=== PATIENT | female | born 1935 | race Caucasian/White ===

== ENCOUNTER 2016-11-05 02:41 | Inpatient (IN) | payer MEDICARE, OTHER ==
[~2016-11-05] VITALS: Ht 167.6 cm; Wt 73.8 kg
[2016-11-05] VITALS (7 sets, daily range): BP systolic 117–159; BP diastolic 54–72; PULSE 86–100; RESP 15–21; O2SAT 92–97
[~2016-11-05 02:41] MED LIST: HYDR-4003 PO
[2016-11-05] MEDS: Amiodarone 360 mg/200 mL D5W 360 MG, Filter, Taxol 14256-28 1 EACH in IV Premix 1 EACH IV SCH ×3 (03:30→18:37)
[2016-11-05] MEDS ORDERED: Alum-Mag Hydrox-Simeth 30 mL Suspension PO PRN (03:40)
[2016-11-05] MEDS ORDERED: Ondansetron 2 mg/mL 2 mL Inj IVPUSH PRN (03:40)
[2016-11-05] MEDS ORDERED: Polyethylene Glycol (PEG) 17 Gm Powder PO PRN (03:40)
[2016-11-05 04:06] LABS: BASOPHILS % (AUTO) 0.5 % (0-3); EOSINOPHILS % (AUTO) 0 % (0-5); MONOCYTES % (AUTO) 8.6 % (4-12); Mean Corpuscular Hemoglobin 30.3 pg (27.0-35.0); Mean Corpuscular Volume 92.1 fL (81-100); NEUTROPHILS % (AUTO) 77.7 % (40-74); Platelet Count 117 bil/L (150-400)
[2016-11-05] MEDS ORDERED: CART1TAB5 PO (04:20)
[2016-11-05] MEDS ORDERED: CALC600T12 PO (04:20)
[2016-11-05] MEDS ORDERED: ASCO-294 PO (04:20)
[2016-11-05] MEDS ORDERED: VIT1TABL83 PO (04:20)
[2016-11-05] MEDS ORDERED: Amiodarone 360 mg/200 mL D5W Premix IV ONE ×3 (04:37→18:32)
[2016-11-05] MEDS ORDERED: IV Premix 1 EACH IV ONE ×3 (04:37→18:32)
--- NOTE | 2016-11-05 04:42 | PCM.HPMED ---
Subjective Date of Service November 05, 2016 Primary Provider: Admitting Physician: Zuhair Majano MD Primary Care Physician: Nopcp Attending Physician: Zuhair Majano MD Admit Status: Direct Admit (From [facility]), Full Admit, [facility] Telemetry Chief Complaint: Tachyarrhythmia s/p Electrical cardioversion History of Present Illness: Vaishali Heart is a 80 yo woman with Breast cancer in remission but otherwise healthy who was transferred from [facility] after presenting there with respiratory symptoms and then subsequently had arrhythmia requiring electrical cardioversion and Amiodarone drip Patient reported felling well until 3 days ago when she developed shortness of breathe and associated with productive cough of yellow sputum. Other symptoms includes malaise. She reports a man was coughing around her when she went to the post office. She denies any aspiration or recent travels. She also developed pneumonia last April shortly after her husbands . She went to Urgent care clinic a day prior, she was told she likely had a viral infection and only recommended Mucinex and Claritin over the counter and no antibiotics prescribed. Last night before going to sleep she took both medications and immediately felt dizziness with near syncopal event as well as nausea (denies any vomiting). She felt warm all over her body and felt some palpitations. She also reported low grade fever 99. She called her daughter who recommended going to the hospital At [facility]: Chest X ray showed right lower lobe infiltrates EKG showed SVT at 146 then showing A fib with RVR with non specific ST-T wave changes Labs showed WBC 5.2 Hgb 13.1 Plt 116 Lactic acid 1.7 Troponin 0.08 BNP 287 INR 1.0 Initial assessment showed SVT with irregular rhythm with some runs of V tach. Carotid massage ineffective. Adenosine 6 and 12 mg also ineffective. Amiodarone given. Decision to cardiovert. Fentanyl and propofol given then synchronized cardioversion at 120, 159, 200, 200. Patient then converted to A fib with RVR. Dose of Cardizem and Amiodarone drip started. Patient also received Meropenem IV for pneumonia. Dr Sims was notified and recommend transferring to [facility] Review of Systems: Pertinent positives as noted in HPI. All other systems were reviewed and are negative Allergies Coded Allergies: levofloxacin (Verified Allergy, Mild, 11/05/16) pt cannot recall reaction, states "adverse". Pt states made pneumonia worse. Sulfa (Sulfonamide Antibiotics) (Verified Allergy, Unknown, 08/25/10) erythromycin base (Verified Allergy, Unknown, 08/25/10) guaifenesin (Verified Allergy, Unknown, Shortness of Breath, 11/05/16) pt states she felt spasms, and warmth/heat all over loratadine (Verified Allergy, Unknown, Shortness of Breath, 11/05/16) pt states she felt spasms, and warmth/heat all over risedronate sodium (Verified Adverse Reaction, Unknown, increased pain, 12/07/15) Home Medications No prescription medications PMH Breast cancer status post resection with chemotherapy and radiation therapy. 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 Surgical History right mastectomy in 1996 L eft hip fracture, status post repair by Dr. Ronquillo in Orthopedics Family History Father had Stroke 80s and from complications Mother had Kidney cancer No family history of any Cardiac disease Social History Hx Alcohol Use: No Hx Substance Use: No Hx Tobacco Use: No Smoking Status: Never Smoker Living Arrangement: Alone ( last April) Exam Vital Signs Vital Signs (First) Date Time Temp Pulse Resp B/P Pulse Ox O2 Delivery O2 Flow Rate FiO2 11/05/16 05:10 37.0 87 21 117/67 92 Room Air Exam General: Alert, Oriented X3, Cooperative, No acute Distress Eyes: PERRLA, Scleral Anicteric Mouth: Mouth Normal, Mucous Membranes Moist/[place] Neck: Supple, no Thyromegaly, trachea central. Chest & Lungs: decreased breathe sounds at base Cardiovascular: Normal S1, Normal S2, No Murmurs/Rubs/Gallops, Regular Rate/ Rhythm, (No JVD, no peripheral edema) Pulses: Radial (present and equal), Dorsalis Pedi (present and equal) Abdomen: Soft, Non-tender, Non-distended, Normoactive bowel tones. Musculoskeletal: Unremarkable. Normal range of motion, no swollen or erythematous joints Extremities: No edema, no cyanosis, no clubbing. Skin: No rashes. Warm and dry, no erythematous areas Neurological: Grossly neurologically intact, Normal Speech, Sensation Intact Lymphatic: Lymph nodes Cervical and Axillary not palpable. Lab and Diagnostics Labs Laboratory Tests Test 11/05/16 04:00 11/05/16 04:03 11/05/16 04:54 Hold Rivera Top Tube Received (Received) White Blood Count 4.4th/mm3 (3.8-10.1) Red Blood Count 4.06mil/mm3 (3.90-5.20) Hemoglobin 12.3g/dL (12.0-15.6) Hematocrit 37.4% (35.0-46.0) Mean Corpuscular Volume 92.1fL (81-100) Mean Corpuscular Hemoglobin 30.3pg (27.0-35.0) Mean Corpuscular Hemoglobin Concent 32.9% (32.0-37.0) Red Cell Distribution Width 14.4% (12.3-15.4) Platelet Count 117bil/L (150-400) Neutrophils (%) (Auto) 77.7% (40-74) Lymphocytes (%) (Auto) 13.2% (14-46) Monocytes (%) (Auto) 8.6% (4-12) Eosinophils (%) (Auto) 0% (0-5) Basophils (%) (Auto) 0.5% (0-3) Sodium Level 137mEq/L (134-144) Potassium Level 4.4mEq/L (3.5-5.2) Chloride Level 103mEq/L (97-108) Carbon Dioxide Level 17mmol/L (18-29) Blood Urea Nitrogen 14mg/dL (8-27) Creatinine 0.63mg/dL (0.57-1.00) Estimat Glomerular Filtration Rate 131mL/min (>59) Glucose Level 163mg/dL (60-99) Calcium Level 8.0mg/dL (8.5-10.1) Total Bilirubin 0.3mg/dL (0.0-1.2) Aspartate Amino Transf (AST/SGOT) 124U/L (0-50) Alanine Aminotransferase (ALT/SGPT) 92U/L (0-32) Alkaline Phosphatase 66U/L (25-165) Pro-B-Type Natriuretic Peptide 2205pg/mL (0-738) Total Protein 5.8g/dL (6.4-8.4) Albumin 3.4g/dL (3.4-5.0) Procalcitonin 0.12ng/mL (0.00-0.08) Thyroid Stimulating Hormone (TSH) 2.060uIU/mL (0.450-4.500) Hold Urine Received (Received) Result Diagram: 11/05/16 0403 Assessment & Plan Vaishali Heart is a 80 yo woman with Breast cancer in remission but otherwise healthy who was transferred from [facility] after presenting there with respiratory symptoms and then subsequently had arrhythmia requiring electrical cardioversion and Amiodarone drip 1 Acute Tachyarrhythmia. Present on admission Chronologically SVT, V tach then Atrial fibrillation with rapid ventricular response. s/p Electrical cardioversion. Etiology is unclear, possible Cardiac stress from pneumonia. Medication induced from Guaifenesin and Claritin or Takotsubo Cardiomyopathy. - continue monitoring on telemetry - continue Amiodarone drip - complete echo - trending troponin, checking TSH - await recommendations from Cardiology and possible EPS 2 Community acquired pneumonia. Present on admission Possible the patient initially acquired a viral respiratory infection then developed bacterial infection - Patient received Meropenem based on her allergy profile - follow Blood cultures from [facility] - Viral PCR requested - lactic acidosis - recommend consulting Dr Schrader for antibiotics choice 3. Elevated transaminase. Present on admission Etiology unclear but could be shock liver related to tachyarrhythmia. Ration AST :AST 2:1 - Patient denies any Alcoholism or medications with hepatotoxicity 4 History of Breast Cancer. in remission - Acetaminophen as needed for mild pain/fever/headache - Bowel regimen as needed - Antiemetic as needed Patient admitted under inpatient status with expected length of stay > 2 midnights for severity of present symptoms, complexities of treatment plan and risk for adverse event . Resuscitation Status: DNR/DNI:Do Not Resuscitate/Intubate Zuhair Majano MD November 05, 2016 04:42
--- NOTE | 2016-11-05 05:45 | PCM.ADCARE ---
Advance Care Planning Note Purpose of Encounter: Active Diagnoses: Atrial fibrillation with rapid ventricular response Community acquired pneumonia These active diagnoses are sufficient risk that focused discussion on advance car planning is indicated in order to allow the patient to thoughtfully consider personal goals of care and if situations arise that prevent the ability to personally give input to insure appropriate representation of their personal desires through documentation or informed surrogate decision makers Parties in Attendance: Patient, Daughter (Modesta Quinn) and me Decisional Capacity: Good Goals of Care Determinations: I reviewed new diagnosis or Atrial fibrillation and pneumonia and her desires for ongoing aggressive care, including potential intubation and mechanical ventilation as well as CPR. Also discussed who would speak on her behalf should she be unable to do so, she states her daughter Modesta Quinn will be her proxy and Power of erisa attorney. Patient has already decided of DNR/DNI and reported filling a Polst form with Dr Byrd already CODE STATUS: DNI/DNR Time Spent Adv.Care Planning: Total time spent [id number] in education and discussion directly related to Advance Care Plannin minutes Zuhair Majano MD November 05, 2016 05:45
[2016-11-05 16:32] LABS: APPEARANCE,URINE CLEAR (CLEAR,HAZY); COLOR,URINE STRAW (YELLOW); OCCULT BLOOD,URINE NEGATIVE (NEGATIVE); UROBILINOGEN,URINE NORMAL (NORMAL)
--- NOTE | 2016-11-05 20:49 | CONS ---
[address] [address] CONSULTATION REPORT PATIENT: TRACI CH : 1935 MR#: [id number] ADMIT: 11/05/2016 JOB ID: [id number] CARDIOLOGY CONSULTATION: DATE OF SERVICE: 11/05/2016 CHIEF COMPLAINT: Malaise for three days. HISTORY OF PRESENT ILLNESS: This is a 80-year-old woman transferred from [facility] for near syncopal episode which upon review of the available strips and EKGs shows atrial flutter with 1:1 conduction as well as brief episodes of ventricular tachycardia. The patient says that her story began about three days ago when she was feeling tired and short of breath. She saw her primary care provider and was diagnosed with basically seasonal allergies. She was told to get some [id number] remedies for this problem, but she took the [id number]-yzcgaia remedy and felt worse, so she reported to [facility] Emergency Department. She was diagnosed with pneumonia. Unfortunately I do not have the EKGs available for review. She also had a low grade fever. She suffered episode of near syncope. There are two strips and one 12 lead EKG from [facility] available for review. There is a 12-lead EKG from 1 a.m. that shows A-flutter with a cycle length of 240 msec in the first half of this EKG and then she converted spontaneously to normal sinus rhythm. Then there is a strip obtained at 1:23 a.m. which shows atrial tachycardia followed by basically what appears to be ventricular tachycardia with a cycle length of 240 msec lasting 9 beats. Then there is another strip at 1:25 a.m. on November 05 which shows atrial tachycardia followed by 20 beat run of ventricular tachycardia. I say 20 beat run because that is how many beats are documented on the strip, but actually the termination of the run of ventricular tachycardia has not been documented. The patient apparently was shocked four times at [facility] and transferred to [facility] for further management. PAST MEDICAL HISTORY: History of breast cancer treated with right-sided mastectomy and bilateral reconstruction as well as radiation therapy in 1996. Currently in remission. PAST SURGICAL HISTORY: 1. History of ground level fall and associated hip fracture. Status post tubal ORIF on the left side. 2. Bilateral cataract surgery. 3. History of tonsillectomy. 4. Breast reconstruction as outlined above. SOCIAL HISTORY: The patient is a . The patient is a lifetime nonsmoker. FAMILY HISTORY: Brother with cancer of the colon. Father with stroke. Mother with kidney cancer and diabetes. REVIEW OF SYSTEMS: Patient reports malaise, dizziness, near-syncope, low-grade fevers, cough. Otherwise 10 point review of systems is negative. ALLERGIES: 1. LEVOFLOXACIN which causes trouble breathing. 2. SULFA DRUGS which cause a rash. 3. RISEDRONATE which causes neck pain. 4. ERYTHROMYCIN which causes a rash. HOME MEDICATIONS: Multiple supplements and herbs including vitamin D, calcium, magnesium, and vitamin C. PHYSICAL EXAMINATION: At this moment in time, temperature 36.6, blood pressure 117/67, up to 159/72, pulse 86 up to 95 beats per minute. She has been in normal sinus rhythm the whole time she has been on tele. She is satting 92% to 97% on 1 L nasal cannula. Very pleasant woman in no apparent distress. Eyes: No scleral icterus. Neck is supple. No lymphadenopathy. No carotid bruits. Skin: No rashes or lesions. Lungs with diminished breath sounds on the right. Heart: Normal S1, S2. No murmurs, rubs, or gallops. Abdomen is soft, positive bowel sounds. No hepatosplenomegaly. Extremities: Warm and well perfused. No clubbing, cyanosis, or edema. LABORATORY DATA: Reviewed. TSH is normal. Troponin T is negative x2. Creatinine 0.6. AST 124, ALT 92, total bilirubin 0.3. Labs from [facility] were also reviewed. They show the D-dimer was high at 652. Over there platelets were low at 116, hematocrit was 40%, white count 5.2 with normal differential. ASSESSMENT AND PLAN: In summary, this is a 80-year-old woman. She is diagnosed here with influenza AH3. She is on contact and airborne precautions. She has been placed on oseltamivir. She also has arrhythmia; namely paroxysmal atrial flutter noted in the emergency department at [facility]. We have not seen any here. It seems to have responded favorably to amiodarone infusion. Technically, amiodarone is a risky medication especially for person with abnormal liver function testing. I think we could try to just put her on a beta sharlene and see how she does tomorrow. Roc will just try her on amiodarone tablet and see how she does with that. So because she had runs of symptomatic and possibly sustained ventricular tachycardia, I put her on amiodarone 400 mg 3 times a day. In terms of paroxysmal atrial flutter, technically she is at risk for stroke and qualifies for anticoagulation medication. She tells me though that she coughed up some possibly bloody sputum; it was gold color, so for that reason, I am not recommending anticoagulation until we obtain imaging of her lungs. I hear decreased breath sounds on the right but she does not have any imaging available for review; none as mentioned on the notes from [facility] and none is available in the . So if the lung imaging is reassuring then I recommend heparin drip per ACS protocol. If lung imaging demonstrates significant mass-effect that could be accounting for hemoptysis then I recommend withholding anticoagulation until further notice. For now I will just put her on aspirin 325 mg daily. While her troponins are negative, the runs of ventricular tachycardia are quite concerning. I think she is at risk for stress cardiomyopathy with her influenza and I have seen that before so echocardiogram has been ordered and is pending and will have a low threshold to pursue angiogram given runs of sustained ventricular tachycardia and Electrophysiology consultation. Thank you very much for the opportunity to participate in her care.
--- NOTE | 2016-11-05 21:31 | DRSVH ---
PROCEDURE: X-RAY CHEST, TWO VIEWS ([id number]) INDICATIONS: pneumonia TECHNIQUE: 2 views of the chest were acquired. COMPARISON: [facility], CR, XR CHEST 2VW, 05/16/2016, 8:44. FINDINGS: Surgical changes and devices: None. Lungs and pleura: No pneumothorax. Patchy pulmonary opacities are present in the right lung base, in creased from the prior chest film dated 05/16/16. A diffuse reticular pattern is present throughout t he lungs suggesting underlying fibrosis. There is prominence of the interstitium and Yessi B. lines at the bilateral lung bases. Mediastinum: Mediastinal contours are normal. Heart size is enlarged, as before. Bones and chest wall: No suspicious bony abnormalities. Soft tissues appear unremarkable. IMPRESSION: 1. Right basilar radiopacities which are new when compared with the prior study suspicious for aspira tion/infection. 2. Findings suspicious for pulmonary edema superimposed on pulmonary fibrosis. Dictated by: Mercedez Paulino M.D. on 11/05/2016 at 21:28 Approved by: Mercedez Paulino M.D. on 11/05/2016 at 21:30
[2016-11-06] VITALS (12 sets, daily range): BP systolic 113–152; BP diastolic 57–82; PULSE 79–100; RESP 16–18; O2SAT 90–97
[2016-11-06 02:58] LABS: BASOPHILS % (AUTO) 0.2 % (0-3); EOSINOPHILS % (AUTO) 0 % (0-5); MONOCYTES % (AUTO) 8.8 % (4-12); Mean Corpuscular Volume 92.5 fL (81-100); NEUTROPHILS % (AUTO) 64.9 % (40-74); Platelet Count 124 bil/L (150-400)
--- NOTE | 2016-11-06 14:55 | DRSVH ---
[facility] [address] [place] [address] Echocardiogram Report Name: TRACI CH JStudy Date: 11/06/2016 Height: 66 in Hospital Exam Location: [facility] Weight: 173 lb Gender: Female BSA: 1.9 m2 : 1935 Age: 80 yrs BP: 135/81 mmHg Reason For Study: Atrial fibrillation Ordering Physician: Performed By: Mary Chen [facility] Interpretation Summary Normal sinus rhythm, Normal LV size and mild concentric LVH. There is normal wall motion and LV systolic function. EF is 60-65%. Stage II diastolic dysfunction. There is moderate LA enlargement and mild RA enlargement. There is mild MAC with trace associated MR. Aortic valve is mildly calcified with mild aortic regurgitation and no evidence of stenosis. No prior study available for comparison. Procedure: A two-dimensional transthoracic echocardiogram with color flow and Doppler was performed. The study quality was technically adequate. There is no prior echocardiogram noted for this patient. The patient was in normal sinus rhythm during the exam. Left Ventricle: The left ventricle is normal in size. There is mild concentric left ventricular hypertrophy. A false chord is noted (normal variant). The ejection fraction is estimated to be 60-65%. Assessment of diastolic parameters suggests a pseudonormalization pattern, consistent with elevated filling pressures. The E/E' ratio is abnormal. Right Ventricle: The right ventricle is mildly dilated. The right ventricular systolic function is normal. Atria: The left atrium is moderately dilated. The right atrium is mildly dilated. There is no Doppler evidence for an interatrial shunt. Mitral Valve: There is mild mitral annular calcification. There is trace mitral regurgitation. Aortic Valve: The aortic valve is trileaflet. The aortic valve opens well. The aortic valve is slightly calcified. There is trace aortic regurgitation. Tricuspid Valve: The tricuspid valve leaflets are thin and pliable. There is mild tricuspid regurgitation. The right ventricular systolic pressure is estimated at 38 mmHg assuming a right atrial pressure of 15 mm Hg. Pulmonic Valve: The pulmonic valve is not well visualized. Great Vessels: The aortic root is normal size. The ascending aorta is mildly enlarged. The aortic arch could not be visualized. The IVC is dilated (diameter is greater than 2.1 cm) and it collapses less than 50% with a sniff. This suggests a high right atrial pressure of 15 mm Hg. Pericardium/ Pleura There is an anterior echo-free space consistent with a fat pad. There is no pericardial effusion. MMode/2D Measurements & Calculations LVIDd: 4.2 cm RA long axis LVOT diam LVIDs: 2.9 cm LA A2 area: 25.7 cm FS: 29.9 % LA A4 area: 26.7 cm RA area Ao root diam EPSS: 0.36 cm LA length (vol): 7.0 cm IVSd: 1.1 cm LA vol: 82.8 ml : 22.3 cm Aortic Jxn LVPWd: 1.1 cm LA vol index RA vol: 69.4 ml RA asc Aorta : 36.9 mm2 Diam: 3.4 cm IVC diam: 2.6 cm LV cox. diameter/BSA LV sys. diameter/BSA RVD1 (basal) TAPSE: 2.5 cm (cm/m^2): 2.2 (cm/m^2): 1.6 Doppler Measurements & Calculations Ao V2 max MV E max александр MV E/A: 1.3 TR max александр : 166.9 cm/sec : 114.5 cm/sec Med Peak E' Александр : 242.1 cm/sec Ao max P.1 mmHg MV A max александр TR max PG Ao mean P.1 mmHg : 89.8 cm/sec E/E' med: 17.3 : 23.4 mmHg LVOT Max Александр MV P1/2t: 59.9 msec Lat Peak E' Александр : 124.3 cm/sec E/E' lat: 12.1 RAHAT(I,D): 2.0 cm E/e' average sev ratio: 0.67 AI P1/2t: 473.3 msec AI dec slope : 261.2 cm/s2c MV dec time: 0.20 sec MV P1/2t max александр Ao V2 mean LV V1 max PG : 116.6 cm/sec MVA(P1/2t): 3.7 cm2 Ao V2 VTI: 33.9 cmLV V1 VTI RAHAT(V,D): 2.2 cm2 : 22.9 cm RAHAT indexed to BSA (cm^2/m^2): 1.1 Reading Physician:02:54 PM
[2016-11-06] MEDS: Piperacillin-Tazo 3.375 Gm Inj 3.375 GM in Dextrose 5% Minibag Plus 50 ML IV SCH ×2 (18:00→23:41)
--- NOTE | 2016-11-06 19:34 | PROG NOTE ---
[address] [address] PROGRESS NOTE PATIENT: TRACI CH : 1935 MR#: [id number] ADMIT: 11/05/2016 JOB ID: [id number] DATE: 11/06/2016 SUBJECTIVE: Patient had no recurrence of dysrhythmia overnight. She was successfully transitioned from IV amiodarone to p.o. amiodarone. She is accompanied today by her daughter and granddaughter, Elizabet, and they have many questions about mom's prognosis. PHYSICAL EXAMINATION: Vital signs reviewed. Well-nourished, no apparent distress. Eyes: No scleral icterus. Neck supple. No carotid bruits. Heart: Normal S1, S2. No murmurs. Lungs: Clear anteriorly. Abdomen: Soft, positive bowel sounds. No hepatosplenomegaly. Telemetry shows that heart rate fluctuates between 80 up to 106 beats per minute. She had brief episodes of asymptomatic atrial tachycardia but certainly no recurrence of atrial flutter ASSESSMENT AND PLAN: In summary, this is a 80-year-old woman admitted with influenza virus and associated shortness of breath. Unfortunately she also developed evidence of sustained ventricular tachycardia that was of highly symptomatic and atrial flutter with rapid ventricular response and 1:1 conduction requiring four cardioversions at [facility]. She has responded favorably to amiodarone. However, in the buttermilk drier operator, probably not the greatest medication for her, given transaminitis. Today, we had a family meeting with patient, daughter, and granddaughter, Elizabet, present. Unfortunately it sounds like mom's functional status has declined. She is having memory problems. She sometimes leaves the stove on. There is thinking that she needs to be having 24/7 care and live-in aide, or maybe even go to assisted living facility. They are not sure about the directions of care. They are not sure whether she would want an ICD or whether she would want to have EP study or cardiac catheterization, which is what it would take to understand the etiology of her ventricular tachycardia. Personally, I am not sure 100% sure whether wide-complex tachycardia is in fact ventricular tachycardia or whether it represents atrial flutter with aberrant conduction. We also are not sure about the duration of VT. It certainly appears greater than 10 seconds, but I cannot be sure because termination is not documented. Echocardiogram shows preserved LV systolic function, and at least for the time being, we have stabilized her tachyarrhythmia. The plan for this patient is to have another family meeting tomorrow after she has had time to think about the direction of care. If she chooses to proceed with comprehensive care, I would recommend cardiac catheterization to rule out hemodynamically significant atherosclerotic heart disease that is the cause of her sustained VT. After that, if it is negative, that would be great and I hope it would be since her LV systolic function is normal. Then I would recommend a comprehensive EP study to understand why she had flutter with 1:1 conduction. It is possible that she has accessory pathway, possibly antegrade only so she does not have evidence of preexcitation on the resting EKG. If indeed she has accessory pathway that facilitated 1:1 conduction and was unmasked in the setting of high adrenergic stress event then she would benefit from ablation, but alternatively, she could just have had flutter with rapid ventricular response. That could be treated with ablation. I think she would benefit from seeing our network security officer, Dr. Vázquez, to discuss this problem further. Given paroxysmal A-flutter technically she would qualify for oral anticoagulation if her CBC is stable and I recommend trying low molecular weight heparin 1 mg/kg subcu b.i.d. for stroke prevention. I recommend repeating her liver function tests. If transaminases remain elevated and amiodarone is not a good medication for her, will have to think of an alternative antiarrhythmic. Thank you very much for the opportunity to evaluate her. LAURITA
--- NOTE | 2016-11-06 22:18 | PCM.PNMED ---
Subjective Date of Service November 06, 2016 Subjective Patient is feeling poorly today and is extremely fatigued with malaise and somnolence. She also complains of fever today. Exam Vital Signs Vital Sign - Last Date Time Temp Pulse Resp B/P Pulse Ox O2 Delivery O2 Flow Rate FiO2 11/06/16 20:00 95 11/06/16 16:04 36.7 18 126/68 96 Nasal Cannula 2.00 Intake and Output 11/05/16 11/05/16 11/06/16 Cumulative From/Thru 15:00 23:00 07:00 11/05/16 04:24 - 11/06/16 06:05 Intake Total 1229 ml 424 ml 2013 ml Output Total 1200 ml 1050 ml 2850 ml Balance 29 ml -626 ml -837 ml Intake Oral 818 ml 390 ml 1568 ml IV Total 411 ml 34 ml 445 ml Output Urine Total 1200 ml 1050 ml 2850 ml Exam General: Patient appears fatigued and ill. Otherwise she is in no apparent distress and appears comfortable. HEENT: Head is atraumatic and normocephalic. Eyes: Pupils are equally round and reactive to light and accommodation. Extraocular muscles are intact. Sclera are white, anicteric. Subconjunctival mucosa is pink. Ears and nose are unremarkable. Oropharynx: There is no mucosal lesions, there is no thrush, there is no pharyngitis. Neck: Is supple, there are no nodes, or masses or tenderness. Chest: There is a few basilar crackles at the right base Heart: Rate is controlled, rhythm is irregular. There is no new murmur, rub or gallop. Abdomen: Good bowel sounds are present. Abdomen is soft, nontender, no organomegaly or masses were appreciated. Extremities: Are symmetrical and well perfused. There is no edema, there is no cellulitis, no rash. Neurologic: There are no focal neurological deficits. Cranial nerves II through XII are intact. There are no sensory or motor deficits. Psychiatric: Patients mood is calm and she shows no sign of agitation. Genital: Deferred Rectal: Deferred Lab and Diagnostics Result Diagram: 11/06/16 0236 11/06/16 0236 Microbiology INFLUENZA A PCR Final 11/05/16-1115 Organism 1 INFLUENZA A H3 INFLUENZA A PCR DETECTED TIME CALLED: 1113 DATE CALLED: 11/05/16 FLOOR/DOCTOR: [facility] CALLED BY: ROD 12-lead ECG PROCEDURE: X-RAY CHEST, TWO VIEWS ([id number]) INDICATIONS: pneumonia TECHNIQUE: 2 views of the chest were acquired. COMPARISON: [facility], CR, XR CHEST 2VW, 05/16/2016, 8:44. FINDINGS: Surgical changes and devices: None. Lungs and pleura: No pneumothorax. Patchy pulmonary opacities are present in the right lung base, increased from the prior chest film dated 05/16/16. A diffuse reticular pattern is present throughout the lungs suggesting underlying fibrosis. There is prominence of the interstitium and Yessi B. lines at the bilateral lung bases. Mediastinum: Mediastinal contours are normal. Heart size is enlarged, as before. Bones and chest wall: No suspicious bony abnormalities. Soft tissues appear unremarkable. IMPRESSION: 1. Right basilar radiopacities which are new when compared with the prior study suspicious for aspiration/infection. 2. Findings suspicious for pulmonary edema superimposed on pulmonary fibrosis. Dictated by: Mercedez Paulino M.D. on 11/05/2016 at 21:28 Approved by: Mercedez Paulino M.D. on 11/05/2016 at 21:30 Cardiac Echo Impressions Echocardiogram Report Name: VAISHALI CH JStudy Date: 11/06/2016 Height: 66 in Hospital Exam Location: [facility] Weight: 173 lb Gender: Female BSA: 1.9 m2 : 1935 Age: 80 yrs BP: 135/81 mmHg Reason For Study: Atrial fibrillation Ordering Physician: Performed By: Mary [facility] Interpretation Summary Normal sinus rhythm, Normal LV size and mild concentric LVH. There is normal wall motion and LV systolic function. EF is 60-65%. Stage II diastolic dysfunction. There is moderate LA enlargement and mild RA enlargement. There is mild MAC with trace associated MR. Aortic valve is mildly calcified with mild aortic regurgitation and no evidence of stenosis. No prior study available for comparison. Assessment & Plan Vaishali Ch is a 80 yo woman with a history of Breast cancer in remission but otherwise healthy who was transferred from [facility] after presenting there with respiratory symptoms and then subsequently had arrhythmia requiring electrical cardioversion and Amiodarone drip 1 Acute Tachyarrhythmia. Present on admission Chronologically SVT, V tach then Atrial fibrillation with rapid ventricular response. s/p Electrical cardioversion. Etiology is unclear, possible Cardiac stress from pneumonia. Medication induced from Guaifenesin and Claritin or Takotsubo Cardiomyopathy. - continue monitoring on telemetry - continue Amiodarone drip - complete echo - trending troponin, checking TSH - Tie Hacker Dr. Child has seen the patient and appreciate her recommendations recommendations from a Cardiology standpoint. We will follow her recommendations. 2 Community acquired pneumonia. Present on admission. With influenza A H3. Patient has persistent fever on Tamiflu. Possible the patient initially acquired a viral respiratory infection then developed a secondary bacterial infection with chest x-ray showing evidence for right lower lobe infiltrate - Patient received Meropenem initially due to her allergy profile. We will de- escalate slightly to Zosyn 3.375 g IV every 8 hours. - We will follow Blood cultures from [facility] which are pending. - Viral PCR panel positive for influenza A H3. - Patient had lactic acidosis - We will consider infectious disease consultation. 3. Elevated transaminase. Present on admission Etiology unclear but could be shock liver related to tachyarrhythmia. Ration AST :AST 2:1 - Patient denies any Alcoholism or medications with hepatotoxicity - We will repeat liver function tests in a.m. 4 History of Breast Cancer. in remission - Continue Acetaminophen as needed for mild pain/fever/headache - Continue Bowel regimen as needed - Continue Antiemetic as needed Disposition: Patient is likely to be here for another 4872 hours for further evaluation and treatment of the above condition. . Pain Evaluation: Adequate Pain Control GI Prophylaxis: Proton Pump Inhibitor VTE Prophylaxis: Sub-Q Enoxaparin Resuscitation Status: DNR/DNI:Do Not Resuscitate/Intubate Tino Mabry MD November 06, 2016 22:18
[2016-11-07] VITALS (9 sets, daily range): BP systolic 112–130; BP diastolic 60–75; PULSE 71–85; RESP 16–20; O2SAT 94–98
[2016-11-07 03:18] LABS: BASOPHILS % (AUTO) 0.5 % (0-3); EOSINOPHILS % (AUTO) 0.5 % (0-5); MONOCYTES % (AUTO) 12.4 % (4-12); Mean Corpuscular Hemoglobin 29.5 pg (27.0-35.0); Mean Corpuscular Volume 92.9 fL (81-100); Platelet Count 133 bil/L (150-400)
[2016-11-07 04:04] LABS: Magnesium 1.8 mg/dL (1.6-2.6); Phosphorus 3.9 mg/dL (2.5-4.9)
[2016-11-07] MEDS: Piperacillin-Tazo 3.375 Gm Inj 3.375 GM in Dextrose 5% Minibag Plus 50 ML IV SCH ×2 (09:08→16:13)
[2016-11-07] MEDS: Pantoprazole 40 mg ER24 Tablet PO SCH (09:08)
--- NOTE | 2016-11-07 16:32 | PCM.PNMED ---
Subjective Date of Service November 07, 2016 Subjective Vaishali Heart is a 80 yo woman with a history of Breast cancer in remission but otherwise healthy who was transferred from [facility] after presenting there with respiratory symptoms and then subsequently had arrhythmia requiring electrical cardioversion and Amiodarone drip. Hospital day #3. Overnight: The patient had a few runs of SVT that returned to atrial flutter with heart rate in the 80s and 90s. The patient was asymptomatic at that time. Today: The patient states that she feels quite tired but denies any fevers, chills, nausea, vomiting. She does state that she has been constipated. She states that she has decided to hear out the options that Dr. Vázquez can offer for atrial flutter however she would not like any invasive procedures such as cardiac catheterization. She would however like to maintain her independence, specifically her driving. The remainder of review of systems is negative except as noted above. Exam Vital Signs Vital Sign - Last Date Time Temp Pulse Resp B/P Pulse Ox O2 Delivery O2 Flow Rate FiO2 11/07/16 12:00 36.9 81 16 118/65 97 Nasal Cannula 2.50 Intake and Output 11/06/16 11/06/16 11/07/16 Cumulative From/Thru 15:00 23:00 07:00 11/05/16 04:24 - 11/07/16 04:58 Intake Total 440 ml 380 ml 2833 ml Output Total 1200 ml 800 ml 4850 ml Balance -760 ml -420 ml -2017 ml Intake Oral 440 ml 250 ml 2258 ml IV Total 130 ml 575 ml Output Urine Total 1200 ml 800 ml 4850 ml # Voids 1 1 # Bowel Movements 0 0 Exam General: Patient appears fatigued and ill. Otherwise she is in no apparent distress and appears comfortable. HEENT: Head is atraumatic and normocephalic. Eyes: Pupils are equally round and reactive to light and accommodation. Extraocular muscles are intact. Sclera are white, anicteric. Subconjunctival mucosa is pink. Ears and nose are unremarkable. Oropharynx: There is no mucosal lesions, there is no thrush, there is no pharyngitis. Neck: Is supple, there are no nodes, or masses or tenderness. Chest: There is still a few basilar crackles at the right base Heart: Rate is controlled, rhythm is irregular. There is no new murmur, rub or gallop. Abdomen: Good bowel sounds are present. Abdomen is soft, nontender, no organomegaly or masses were appreciated. Extremities: Are symmetrical and well perfused. There is no edema, there is no cellulitis, no rash. Neurologic: There are no focal neurological deficits. Cranial nerves II through XII are intact. There are no sensory or motor deficits. Psychiatric: Patients mood is calm and she shows no sign of agitation. Genital: No Bahena. Rectal: Deferred IVs and Medications Medications Reviewed: Medications were reviewed in detail Lab and Diagnostics Result Diagram: 11/07/1623411/07/16234 Microbiology Respiratory PCR positive for influenza A H3 X-Rays, CTs and MRIs X-RAY CHEST, TWO VIEWS IMPRESSION: 1. Right basilar radiopacities which are new when compared with the prior study suspicious for aspiration/infection. 2. Findings suspicious for pulmonary edema superimposed on pulmonary fibrosis. Dictated by: Mercedez Paulino M.D. on 11/05/2016 at 21:28 Cardiac Echo Impressions Interpretation Summary Normal sinus rhythm, Normal LV size and mild concentric LVH. There is normal wall motion and LV systolic function. EF is 60-65%. Stage II diastolic dysfunction. There is moderate LA enlargement and mild RA enlargement. There is mild MAC with trace associated MR. Aortic valve is mildly calcified with mild aortic regurgitation and no evidence of stenosis. No prior study available for comparison. Assessment & Plan Vaishali Heart is a 80 yo woman with a history of Breast cancer in remission but otherwise healthy who was transferred from [facility] after presenting there with respiratory symptoms and then subsequently had arrhythmia requiring electrical cardioversion and Amiodarone drip. Hospital day #3 1. Acute Tachyarrhythmia. Present on admission Chronologically SVT, V tach then Atrial fibrillation with rapid ventricular response. s/p Electrical cardioversion. Etiology is unclear, possible causes include. a )Cardiac stress from pneumonia. b )Medication induced from Guaifenesin and Claritin or c )Takotsubo Cardiomyopathy. - We will continue monitoring on telemetry - We will continue Amiodarone drip - Echo consistent with findings as expected for the patient's age and mild diastolic dysfunction mild MR and mild . - TSH unremarkable - Wool Supplier Dr. Child has seen the patient and appreciate her recommendations recommendations from a Cardiology standpoint. We will follow her recommendations. - Patient is agreeable to discuss her options with Dr. Vázquez. 2. Community acquired pneumonia. Present on admission. With influenza A H3. Patient had a persistent fever on Tamiflu. It is possible that the patient initially acquired a viral respiratory infection then developed a secondary bacterial infection with chest x-ray showing evidence for right lower lobe infiltrate - Patient received Meropenem initially due to her allergy profile. We have de- escalated the antibiotics slightly to Zosyn 3.375 g IV every 8 hours. - We will follow Blood cultures from [facility] which are pending. - Viral PCR panel positive for influenza A H3. - Patient had lactic acidosis - We will consider infectious disease consultation. 3. Elevated transaminase. Present on admission Etiology unclear but could be shock liver related to tachyarrhythmia. Ration AST :AST 2:1 - Patient denies any Alcoholism - She does admit to taking several herbal supplements from a fiber optic assembler. She will have her daughter bring in a list of them for evaluation. - We will repeat liver function tests in a.m. 4 History of Breast Cancer. in remission - Continue Acetaminophen as needed for mild pain/fever/headache - Continue Bowel regimen as needed - Continue Antiemetic as needed Disposition: Patient is likely to be here for another 48-72 hours for further evaluation and treatment of the above condition. Anticipate discharge home. Pain Evaluation: Adequate Pain Control GI Prophylaxis: Proton Pump Inhibitor VTE Prophylaxis: Sub-Q Enoxaparin Resuscitation Status: DNR/DNI:Do Not Resuscitate/Intubate Attending Statement Patient seen and examined with Dr. Rivera. Chart reviewed and agree with the above progress note. More Rivera DO November 07, 2016 16:07 Tino Mabry MD November 07, 2016 20:22
[2016-11-08] VITALS (8 sets, daily range): BP systolic 113–135; BP diastolic 63–81; PULSE 74–84; RESP 16–20; O2SAT 94–96
[2016-11-08] MEDS: Piperacillin-Tazo 3.375 Gm Inj 3.375 GM in Dextrose 5% Minibag Plus 50 ML IV SCH ×3 (00:27→17:01)
[2016-11-08 03:10] LABS: BASOPHILS % (AUTO) 1.1 % (0-3); EOSINOPHILS % (AUTO) 1.7 % (0-5); MONOCYTES % (AUTO) 10.7 % (4-12); Mean Corpuscular Hemoglobin 29.6 pg (27.0-35.0); Mean Corpuscular Volume 92.7 fL (81-100); NEUTROPHILS % (AUTO) 53.5 % (40-74); Platelet Count 146 bil/L (150-400)
[2016-11-08 03:54] LABS: Magnesium 1.9 mg/dL (1.6-2.6); Phosphorus 3.7 mg/dL (2.5-4.9)
[2016-11-08] MEDS: Pantoprazole 40 mg ER24 Tablet PO SCH (08:51)
--- NOTE | 2016-11-08 16:08 | PCM.PNMED ---
Subjective Date of Service November 08, 2016 Subjective Vaishali Heart is a 80 yo woman with a history of Breast cancer in remission but otherwise healthy who was transferred from [facility] after presenting there with respiratory symptoms and then subsequently had arrhythmia requiring electrical cardioversion and Amiodarone drip. Currently under treatment for influenza, pneumonia, and tachyarrhythmia. Hospital day #4. Overnight: No acute events. Patient has been in normal sinus rhythm overnight. Today: States that she is feeling much better today and is longer as fatigued as she was yesterday. She denies any myalgias or arthralgias. She denies any fevers or chills. She spoke with Dr. Vázquez's physician special event assistant, Neymar Avilez , but was uncertain of the conclusion of the conversation. It was her understanding that the PA would be speaking to Dr. Vázquez and getting back to her. The remainder of review of systems is negative except as noted above. Exam Vital Signs Vital Sign - Last Date Time Temp Pulse Resp B/P Pulse Ox O2 Delivery O2 Flow Rate FiO2 11/08/16 13:55 36.9 84 18 113/63 94 Room Air 11/07/16 23:00 2.00 Intake and Output 11/07/16 11/07/16 11/08/16 Cumulative From/Thru 15:00 23:00 07:00 11/05/16 04:24 - 11/08/16 05:46 Intake Total 780 ml 578 ml 4191 ml Output Total 600 ml 1500 ml 6950 ml Balance 180 ml -922 ml -2759 ml Intake Oral 780 ml 300 ml 3338 ml IV Total 278 ml 853 ml Output Urine Total 600 ml 1500 ml 6950 ml # Voids 4 5 # Bowel Movements 0 1 1 Exam General: Patient appears better than she did yesterday. She appears to have more energy. She is in no apparent distress and appears comfortable. HEENT: Head is atraumatic and normocephalic. Eyes: Pupils are equally round and reactive to light and accommodation. Extraocular muscles are intact. Sclera are white, anicteric. Subconjunctival mucosa is pink. Ears and nose are unremarkable. Oropharynx: There is no mucosal lesions, there is no thrush, there is no pharyngitis. Neck: Is supple, there are no nodes, or masses or tenderness. Chest: There are still a few basilar crackles at the right base. Heart: Rate is controlled, rhythm is irregular. There is no new murmur, rub or gallop. Abdomen: Good bowel sounds are present. Abdomen is soft, nontender, no organomegaly or masses were appreciated. Extremities: Are symmetrical and well perfused. There is no edema, there is no cellulitis, no rash. Neurologic: There are no focal neurological deficits. Cranial nerves II through XII are intact. There are no sensory or motor deficits. Psychiatric: Patients mood is calm and she shows no sign of agitation. Genital: No Bahena. IVs and Medications Medications Reviewed: Medications were reviewed in detail Lab and Diagnostics Result Diagram: 11/08/1624911/08/16249 Microbiology Respiratory PCR positive for influenza A H3 X-Rays, CTs and MRIs X-RAY CHEST, TWO VIEWS IMPRESSION: 1. Right basilar radiopacities which are new when compared with the prior study suspicious for aspiration/infection. 2. Findings suspicious for pulmonary edema superimposed on pulmonary fibrosis. Dictated by: Mercedez Paulino M.D. on 11/05/2016 at 21:28 Cardiac Echo Impressions Interpretation Summary Normal sinus rhythm, Normal LV size and mild concentric LVH. There is normal wall motion and LV systolic function. EF is 60-65%. Stage II diastolic dysfunction. There is moderate LA enlargement and mild RA enlargement. There is mild MAC with trace associated MR. Aortic valve is mildly calcified with mild aortic regurgitation and no evidence of stenosis. No prior study available for comparison. Assessment & Plan Vaishali Heart is a 80 yo woman with a history of Breast cancer in remission but otherwise healthy who was transferred from [facility] after presenting there with respiratory symptoms and then subsequently had arrhythmia requiring electrical cardioversion and Amiodarone drip. Currently under treatment for influenza, pneumonia, and tachyarrhythmia. Hospital day #4. 1. Acute Tachyarrhythmia. Present on admission. Appears improved. Chronologically SVT, V tach then Atrial fibrillation with rapid ventricular response. s/p Electrical cardioversion. Etiology is unclear, possible causes include. a )Cardiac stress from pneumonia. b )Medication induced from Guaifenesin and Claritin or c )Takotsubo Cardiomyopathy. - We will continue monitoring on telemetry - We will follow the recommendations of cardiology and decrease her amiodarone from 400 mg by mouth 3 times a day to 400 mg by mouth twice a day. - Echo consistent with findings as expected for the patient's age with mild diastolic dysfunction, mild MR and mild . - TSH unremarkable - Break Out Worker Dr. Child has seen the patient and appreciate her recommendations recommendations from a Cardiology standpoint. We will follow her recommendations. - Patient is agreeable to discuss her options with Dr. Vázquez. We will follow Dr. Vázquez's recommendations. 2. Community acquired pneumonia. Present on admission. With influenza A H3. Patient had a persistent fever on Tamiflu. Fever improved today. It is possible that the patient initially acquired a viral respiratory infection then developed a secondary bacterial infection with chest x-ray showing evidence for right lower lobe infiltrate - Patient received Meropenem initially due to her allergy profile. We have de- escalated the antibiotics slightly to Zosyn 3.375 g IV every 8 hours. - We will follow Blood cultures from [facility] which are pending. We will request updated records regarding blood cultures. We are still awaiting records - Viral PCR panel positive for influenza A H3. - Patient had a lactic acidosis which resolved. - We will consider infectious disease consultation. 3. Elevated transaminase. Present on admission. Improving. Etiology unclear but could be shock liver related to tachyarrhythmia. Ration AST :AST 2:1 - Patient denies any Alcoholism - She does admit to taking several herbal supplements from a bottle filler. She had her daughter bring in a list of them for evaluation. None appeared to be obvious culprits however we will investigate further. - We will repeat liver function tests in a.m. 4 History of Breast Cancer. in remission - Continue Acetaminophen as needed for mild pain/fever/headache - Continue Bowel regimen as needed - Continue Antiemetic as needed Disposition: Patient is likely to be here for another 48-72 hours for further evaluation and treatment of the above condition. Anticipate discharge home. Pain Evaluation: Adequate Pain Control GI Prophylaxis: Proton Pump Inhibitor VTE Prophylaxis: Sub-Q Enoxaparin Resuscitation Status: DNR/DNI:Do Not Resuscitate/Intubate Attending Statement Patient was seen and examined with Dr. Rivera. Chart was reviewed and agree with the above progress note. More Rivera DO November 08, 2016 15:53 Tino Mabry MD November 08, 2016 18:53
--- NOTE | 2016-11-08 18:21 | PROG NOTE ---
[address] [address] PROGRESS NOTE PATIENT: TRACI CH : 1935 MR#: [id number] ADMIT: 11/05/2016 JOB ID: [id number] DATE: 11/08/2016 CHIEF COMPLAINT: Very rapid palpitations and near fainting. SUBJECTIVE: This patient is a very pleasant, 80-year-old woman who was transferred from [facility] for treatment of near syncopal episodes, atrial flutter with very rapid ventricular rates and possible episodes of ventricular tachycardia. Reports are that she was cardioverted several times at the other hospital. She was started on an amiodarone drip and also started on amiodarone 400 mg t.i.d., and rhythms have been much better controlled and her symptoms of rapid palpitations and near syncope have been relieved. She currently has no specific complaints and denies any side effects from the amiodarone. OBJECTIVE: Vital signs today show BPs at about 126/77, pulse rates in the 70s and 80s, she is afebrile, pulse oximetry 94% on room air. She has primarily been in sinus rhythm, but there was one brief episode of supraventricular tachycardia with a rate about 145 bpm. A review of the ECG tracings with Dr. Vázquez shows that she had periods of atrial flutter and episodes of perhaps atrial tachycardia. During atrial flutter, she sometimes conducts in a 2:1 manner but other times 1:1. The cycle length flutter is about 260 msec which when conducted 1:1 gives a ventricular rate of 230 bpm. Two of the tracings show what appears to be a sudden occurrence of ventricular tachycardia. On close inspection, she was in atrial flutter with a 2:1 AV roque conduction and a narrow QRS, but then when conducting 1:1, the ventricular complexes show bundle-branch aberration and rate equal to the flutter rate. ASSESSMENT: Patient with atrial flutter and 2:1 conduction mixed with 1:1 conduction prior to treatment with amiodarone. She also showed atrial flutter with 1:1 conduction and ventricular aberration, probably left bundle-branch block. This mimicked ventricular tachycardia. Her echocardiogram on November 06, 2016 showed normal left ventricular size, mild concentric left ventricular hypertrophy and an ejection fraction of 60% to 65%. There was also moderate left atrial enlargement and mild right atrial enlargement. This anatomical patient would go along with atrial arrhythmias rather than ventricular arrhythmias. She has not been symptomatic with chest pain and her troponin levels were normal on admission. PLAN: The patient has received nine doses of amiodarone 400 mg q.8 h. at this point. Her telemetry has not shown recurrence of the atrial flutter with rapid response. Dr. Vázquez and I would recommend decreasing the amiodarone to 400 mg b.i.d. beginning tomorrow morning. Also, she evidently has a very fast conducting AV node and we would recommend starting low-dose metoprolol succinate for rate control during atrial arrhythmias. I have taken the liberty to place orders for these medication changes. A 12-lead ECG on November 05, 2016 when she was in atrial flutter suggests a typical right atrial flutter with a negative flutter wave axis in leads II and III and positive waves in V1. If her medical therapy fails to adequately control atrial flutter, then an atrial flutter ablation procedure could be entertained in the future.
[2016-11-08] MEDS: MeTOProlol XL 25 mg ER24 Tablet PO SCH (20:35)
[2016-11-09] VITALS (8 sets, daily range): BP systolic 124–136; BP diastolic 67–129; PULSE 68–80; RESP 18–20; O2SAT 93–97
[2016-11-09] MEDS: Piperacillin-Tazo 3.375 Gm Inj 3.375 GM in Dextrose 5% Minibag Plus 50 ML IV SCH ×3 (00:12→17:42)
[2016-11-09 02:54] LABS: Mean Corpuscular Hemoglobin 30.1 pg (27.0-35.0); Mean Corpuscular Volume 92.5 fL (81-100); Platelet Count 155 bil/L (150-400)
[2016-11-09 03:18] LABS: BASOPHILS % (AUTO) 2.1 % (0-3); EOSINOPHILS % (AUTO) 1.9 % (0-5); MONOCYTES % (AUTO) 9.5 % (4-12); NEUTROPHILS % (AUTO) 48.3 % (40-74)
[2016-11-09] MEDS: Pantoprazole 40 mg ER24 Tablet PO SCH (09:29)
[2016-11-09] MEDS: MeTOProlol XL 25 mg ER24 Tablet PO SCH ×2 (09:29→20:32)
--- NOTE | 2016-11-09 12:06 | DRSVH ---
PROCEDURE: X-RAY CHEST ONE VIEW, PORTABLE ([id number]) INDICATIONS: PNEUMONIA TECHNIQUE: One view of the chest was acquired. COMPARISON: [facility], CR, XR CHEST 2VW, 11/05/2016, 20:51. FINDINGS: Surgical changes and devices: None. Lungs and pleura: Edema has diminished and there is persistent bibasilar patchy airspace opacities. No pleural effusion or pneumothorax. Mediastinum: Mediastinal contours appear normal. Heart size is enlarged. Bones and chest wall: No suspicious bony lesions. Overlying soft tissues appear unremarkable. IMPRESSION: Resolving edema with persistent densities within the lung bases consistent with residual patchy pulmo nary edema versus pneumonia. Short interval followup is recommended with resolution of the patient's symptoms to ensure there is no underlying pulmonary pathology. Dictated by: Waldemar W[place] Interpreted: Mercedez Paulino MD on 11/09/2016 at 12:05 Transcribed by: SHANNON on 11/09/2016 at 12:06 Approved by: Mercedez Paulino M.D. on 11/09/2016 at 16:47
--- NOTE | 2016-11-09 14:56 | PCM.PNMED ---
Subjective Date of Service November 09, 2016 Subjective Vaishali Heart is a 80 yo woman with a history of Breast cancer in remission but otherwise healthy who was transferred from [facility] after presenting there with respiratory symptoms and then subsequently had arrhythmia requiring electrical cardioversion and Amiodarone drip. Currently under treatment for influenza, pneumonia, and tachyarrhythmia. Hospital day #5. Overnight: No acute events. Today: Patient states that she is quite tired this morning because she got a very poor quality of sleep. She states that the bed was very noisy and very uncomfortable. She is curious about when she can go home. She denies any chest pain, palpitations, shortness of breath, fever, chills. The remainder of review of systems is negative except as noted above. Exam Vital Signs Vital Sign - Last Date Time Temp Pulse Resp B/P Pulse Ox O2 Delivery O2 Flow Rate FiO2 11/09/16 13:55 36.6 78 18 136/75 95 Room Air 11/09/16 07:41 2.00 Intake and Output 11/08/16 11/08/16 11/09/16 Cumulative From/Thru 14:59 22:59 06:59 11/05/16 04:24 - 11/09/16 06:26 Intake Total 141 ml 502 ml 4834 ml Output Total 700 ml 7650 ml Balance 141 ml -198 ml -2816 ml Intake Oral 400 ml 3738 ml IV Total 141 ml 102 ml 1096 ml Output Urine Total 700 ml 7650 ml # Voids 2 7 # Bowel Movements 1 Exam General: Patient appears better than she did yesterday. She appears to have more energy. She is in no apparent distress and appears comfortable. HEENT: Head is atraumatic and normocephalic. Eyes: Pupils are equally round and reactive to light and accommodation. Extraocular muscles are intact. Sclera are white, anicteric. Subconjunctival mucosa is pink. Ears and nose are unremarkable. Oropharynx: There is no mucosal lesions, there is no thrush, there is no pharyngitis. Neck: Is supple, there are no nodes, or masses or tenderness. Chest: There are still a few basilar crackles at the right base. Overall breath sounds are clearer. Heart: Rate is controlled, rhythm is regular. There is no new murmur, rub or gallop. Abdomen: Good bowel sounds are present. Abdomen is soft, nontender, no organomegaly or masses were appreciated. Extremities: Are symmetrical and well perfused. There is no edema, there is no cellulitis, no rash. Neurologic: There are no focal neurological deficits. Cranial nerves II through XII are intact. There are no sensory or motor deficits. Psychiatric: Patients mood is calm and she shows no sign of agitation. Genital: No Bahena. IVs and Medications Medications Reviewed: Medications were reviewed in detail Lab and Diagnostics Result Diagram: 11/09/1622411/09/16224 Microbiology Respiratory PCR positive for influenza A H3 X-Rays, CTs and MRIs X-RAY CHEST, TWO VIEWS IMPRESSION: 1. Right basilar radiopacities which are new when compared with the prior study suspicious for aspiration/infection. 2. Findings suspicious for pulmonary edema superimposed on pulmonary fibrosis. Dictated by: Mercedez Paulino M.D. on 11/05/2016 at 21:28 X-RAY CHEST ONE VIEW, PORTABLE IMPRESSION: 1. Resolving edema with or cyst the densities within the lung bases consistent with residual patchy pulmonary edema versus pneumonia. Dictated by: Waldemar Greco [facility] Interpreted: Mercedez Paulino MD on 11/09/2016 at 12:05 Cardiac Echo Impressions Interpretation Summary Normal sinus rhythm, Normal LV size and mild concentric LVH. There is normal wall motion and LV systolic function. EF is 60-65%. Stage II diastolic dysfunction. There is moderate LA enlargement and mild RA enlargement. There is mild MAC with trace associated MR. Aortic valve is mildly calcified with mild aortic regurgitation and no evidence of stenosis. No prior study available for comparison. Assessment & Plan Vaishali Heart is a 80 yo woman with a history of Breast cancer in remission but otherwise healthy who was transferred from [facility] after presenting there with respiratory symptoms and then subsequently had arrhythmia requiring electrical cardioversion and Amiodarone drip. Currently under treatment for influenza, pneumonia, and tachyarrhythmia. Hospital day #5. 1. Acute Tachyarrhythmia. Present on admission. Resolved. Chronologically SVT, V tach then Atrial fibrillation with rapid ventricular response. s/p Electrical cardioversion. Etiology is unclear, possible causes include. a )Cardiac stress from pneumonia. b )Medication induced from Guaifenesin and Claritin or c )Takotsubo Cardiomyopathy. - Per Neymar's Nickista: atrial flutter and 2:1 conduction mixed with 1:1 conduction prior to treatment with amiodarone. - We will continue monitoring on telemetry. Patient has been in normal sinus rhythm for more than 24 hours now. - We will follow the recommendations of cardiology. Continue amiodarone 400 mg by mouth twice a day. - Cardiology has also added a metoprolol succinate 25 mg by mouth twice a day for rate control. - Echo consistent with findings as expected for the patient's age with mild diastolic dysfunction, mild MR and mild . - TSH unremarkable - Patient will need to follow up outpatient with Dr. Vázquez once her pneumonia and influenza have resolved for further management. 2. Community acquired pneumonia. Present on admission. With influenza A H3. It is possible that the patient initially acquired a viral respiratory infection then developed a secondary bacterial infection with chest x-ray showing evidence for right lower lobe infiltrate - Patient had a persistent fever on Tamiflu. Afebrile for more than 48 hours now. - Patient received Meropenem initially due to her allergy profile. We have de- escalated the antibiotics slightly to Zosyn 3.375 g IV every 8 hours. - We will follow Blood cultures from [facility] which are pending. We requested updated records regarding blood cultures. - Viral PCR panel positive for influenza A H3. - Patient had a lactic acidosis which resolved. - Repeat chest x-ray significant improved as compared to the admission chest x- ray. - She can likely be discharged home tomorrow on Augmentin. 3. Elevated transaminase. Present on admission. Improving. - Etiology unclear but could be due to: a ) shock liver related to tachyarrhythmia. Ration AST:AST 2:1 b) sepsis c) herbal supplements d) other such as passive hepatic congestion - Patient denies any Alcoholism - She does admit to taking several herbal supplements from a medical secretary receptionist. She had her daughter bring in a list of them for evaluation. None appeared to be obvious culprits however we will investigate further. - We will advise patient to minimize her supplement intake. - We will repeat liver function tests in a.m. 4 History of Breast Cancer. in remission - Continue Acetaminophen as needed for mild pain/fever/headache - Continue Bowel regimen as needed - Continue Antiemetic as needed Disposition: Patient can likely be discharged home tomorrow with private pay caregiver. Pain Evaluation: Adequate Pain Control GI Prophylaxis: Proton Pump Inhibitor VTE Prophylaxis: Sub-Q Enoxaparin Resuscitation Status: DNR/DNI:Do Not Resuscitate/Intubate Attending Statement The patient was seen and examined with Dr. Rivera. Chart reviewed and agree with the above progress note. More Rivera DO November 09, 2016 14:24 Tino Mabry MD November 09, 2016 18:13
[2016-11-10] MEDS: Piperacillin-Tazo 3.375 Gm Inj 3.375 GM in Dextrose 5% Minibag Plus 50 ML IV SCH ×2 (00:03→08:58)
[2016-11-10 00:09] VITALS: O2SAT 90
[2016-11-10 00:10] VITALS: BP 131/67; PULSE 66; PULSE 69; RESP 16; O2SAT 96; O2SAT 97
[2016-11-10 03:50] VITALS: BP 137/69; PULSE 71; PULSE 73; RESP 18; O2SAT 96
[2016-11-10 08:00] VITALS: PULSE 60
[2016-11-10 08:51] VITALS: BP 128/69; PULSE 65; RESP 20; O2SAT 94
[2016-11-10] MEDS: MeTOProlol XL 25 mg ER24 Tablet PO SCH (09:01)
[2016-11-10] MEDS: Pantoprazole 40 mg ER24 Tablet PO SCH (09:01)
[2016-11-10] MEDS ORDERED: AMIO200T PO (10:04)
[2016-11-10] MEDS ORDERED: AMOX1TAB11 PO (10:04)
[2016-11-10] MEDS ORDERED: METO25TA99 PO (10:04)
--- NOTE | 2016-11-10 10:11 | PCM.DIMED ---
More Rivera DO 11/10/16 1011: Discharge Instructions Date of Service November 10, 2016 Dates of Hospitalization November 05, 2016 at 03:33 Discharge Diagnosis Discharge Diagnosis 1. Acute Tachyarrhythmia. Present on admission. Resolved. 2. Community acquired pneumonia. Present on admission. With influenza A H3. 3. Elevated transaminase. Present on admission. Improving. 4 History of Breast Cancer. in remission Medication Instructions You were started on two new medications. Amiodarone and metoprolol which are meant to control your heart rate and rhythm. Please continue to take these medications until you see cardiology. You have completed a course of Tamiflu for your influenza. You will need to complete a course of Augmentin for your pneumonia. Diet Heart Healthy Activity Limited until seen by PCP, Home Health Phyical Therapy Call your provider Fever or Chills, Shortness of breath, Chest pain Patient Instructions Please follow up with your primary care provider in about one week. Please follow up with Dr. Vázquez in 3-4 weeks. Follow-up Provider: Faith Garcia PA-C Follow-up with PCP in: 1 week Provider: Frantz Vázquez MD Follow-up in: 4 weeks Tino Mabry MD 11/10/169: Discharge Instructions Attending's Statement Patient seen and examined with Dr. Rivera. Chart reviewed and agree with the above discharge instructions. More Rivera DO November 10, 2016 10:11 Tino Mabry MD November 10, 2016 20:59
--- NOTE | 2016-11-10 16:03 | PCM.DC.MED ---
Discharge Summary Date of Service November 10, 2016 Dates of Hospitalization Date of Hospital Admission November 05, 2016 at 03:33 Date of Discharge: November 10, 2016 Providers: Admitting Physician: Zuhair Majano MD Primary Care Physician: Faith Garcia PA-C Attending Physician: Zuhair Majano MD Diagnosis at Time of Discharge Diagnosis at Time of Discharge 1. Acute Tachyarrhythmia. Present on admission. Resolved. 2. Community acquired pneumonia. Present on admission. With influenza A H3. 3. Elevated transaminase. Present on admission. Improving. 4 History of Breast Cancer. in remission Consultations Cardiology Procedures XRay, CTs & MRIs X-RAY CHEST, TWO VIEWS IMPRESSION: 1. Right basilar radiopacities which are new when compared with the prior study suspicious for aspiration/infection. 2. Findings suspicious for pulmonary edema superimposed on pulmonary fibrosis. Dictated by: Mercedez Paulino M.D. on 11/05/2016 at 21:28 X-RAY CHEST ONE VIEW, PORTABLE IMPRESSION: 1. Resolving edema with or cyst the densities within the lung bases consistent with residual patchy pulmonary edema versus pneumonia. Dictated by: Waldemar Greco [facility] Interpreted: Mercedez Paulino MD on 11/09/2016 at 12:05 Cardiac Echo Impression Interpretation Summary Normal sinus rhythm, Normal LV size and mild concentric LVH. There is normal wall motion and LV systolic function. EF is 60-65%. Stage II diastolic dysfunction. There is moderate LA enlargement and mild RA enlargement. There is mild MAC with trace associated MR. Aortic valve is mildly calcified with mild aortic regurgitation and no evidence of stenosis. No prior study available for comparison. Brief History From Dr. Majano's H and P: "Vaishali Heart is a 80 yo woman with Breast cancer in remission but otherwise healthy who was transferred from [facility] after presenting there with respiratory symptoms and then subsequently had arrhythmia requiring electrical cardioversion and Amiodarone drip Patient reported felling well until 3 days ago when she developed shortness of breathe and associated with productive cough of yellow sputum. Other symptoms includes malaise. She reports a man was coughing around her when she went to the post office. She denies any aspiration or recent travels. She also developed pneumonia last April shortly after her husbands . She went to Urgent care clinic a day prior, she was told she likely had a viral infection and only recommended Mucinex and Claritin over the counter and no antibiotics prescribed. Last night before going to sleep she took both medications and immediately felt dizziness with near syncopal event as well as nausea (denies any vomiting). She felt warm all over her body and felt some palpitations. She also reported low grade fever 99. She called her daughter who recommended going to the hospital At [facility]: Chest X ray showed right lower lobe infiltrates EKG showed SVT at 146 then showing A fib with RVR with non specific ST-T wave changes Labs showed WBC 5.2 Hgb 13.1 Plt 116 Lactic acid 1.7 Troponin 0.08 BNP 287 INR 1.0 Initial assessment showed SVT with irregular rhythm with some runs of V tach. Carotid massage ineffective. Adenosine 6 and 12 mg also ineffective. Amiodarone given. Decision to cardiovert. Fentanyl and propofol given then synchronized cardioversion at 120, 159, 200, 200. Patient then converted to A fib with RVR. Dose of Cardizem and Amiodarone drip started. Patient also received Meropenem IV for pneumonia. Dr Sims was notified and recommend transferring to [facility] " Patient was admitted to the hospitalist service. Hospital Course Vaishali Heart is a 80 yo woman with a history of Breast cancer in remission but otherwise healthy who was transferred from [facility] after presenting there with respiratory symptoms and then subsequently had arrhythmia requiring electrical cardioversion and Amiodarone drip. Currently under treatment for influenza, pneumonia, and tachyarrhythmia. Hospital day #5. 1. Acute Tachyarrhythmia. Present on admission. Resolved. Chronologically SVT, V tach then Atrial fibrillation with rapid ventricular response. s/p Electrical cardioversion. Etiology is unclear, possible causes include. a )Cardiac stress from pneumonia. b )Medication induced from Guaifenesin and Claritin or c )Takotsubo Cardiomyopathy. - Per Neymar's Raghav: atrial flutter and 2:1 conduction mixed with 1:1 conduction prior to treatment with amiodarone. - Monitored on telemetry. Patient has been in normal sinus rhythm for more than 48 hours. - Cardiology consulted. Continued amiodarone 400 mg by mouth twice a day. - Cardiology has also added a metoprolol succinate 25 mg by mouth twice a day for rate control. - Echo consistent with findings as expected for the patient's age with mild diastolic dysfunction, mild MR and mild . - TSH unremarkable - Patient will need to follow up outpatient with Dr. Vázquez once her pneumonia and influenza have resolved for further management. 2. Community acquired pneumonia. Present on admission. With influenza A H3. It is possible that the patient initially acquired a viral respiratory infection then developed a secondary bacterial infection with chest x-ray showing evidence for right lower lobe infiltrate - Patient completed a course of Tamiflu. - Zosyn 3.375 g IV every 8 hours. Total of 5 days of antibiotics. - Blood cultures from [facility] blood cultures negative x2 days. - Viral PCR panel positive for influenza A H3. - Repeat chest x-ray significant improved as compared to the admission chest x- ray. 3. Elevated transaminase. Present on admission. Improving. - Etiology unclear but could be due to: a ) shock liver related to tachyarrhythmia. Ration AST:AST 2:1 b) sepsis c) herbal supplements d) other such as passive hepatic congestion - Patient denied any Alcoholism - She admitted to taking several herbal supplements from a cloth wire weaver. She had her daughter bring in a list of them for evaluation. None appeared to be obvious culprits however we will investigate further. - Minimize her supplement intake. 4 History of Breast Cancer. in remission Exam Vital Signs (Last) Date Time Temp Pulse Resp B/P Pulse Ox O2 Delivery O2 Flow Rate FiO2 11/10/16 09:06 Supplement Oxygen 11/10/16 08:51 36.7 65 20 128/69 94 11/10/16 03:50 2.00 Exam General: Patient appears better than she did yesterday. She appears to have more energy. She is in no apparent distress and appears comfortable. HEENT: Head is atraumatic and normocephalic. Eyes: Pupils are equally round and reactive to light and accommodation. Extraocular muscles are intact. Sclera are white, anicteric. Subconjunctival mucosa is pink. Ears and nose are unremarkable. Oropharynx: There is no mucosal lesions, there is no thrush, there is no pharyngitis. Neck: Is supple, there are no nodes, or masses or tenderness. Chest: There are still a few basilar crackles at the right base. Overall breath sounds are clearer. Heart: Rate is controlled, rhythm is regular. There is no new murmur, rub or gallop. Abdomen: Good bowel sounds are present. Abdomen is soft, nontender, no organomegaly or masses were appreciated. Extremities: Are symmetrical and well perfused. There is no edema, there is no cellulitis, no rash. Neurologic: There are no focal neurological deficits. Cranial nerves II through XII are intact. There are no sensory or motor deficits. Psychiatric: Patients mood is calm and she shows no sign of agitation. Genital: No Ba[place]a. Test 11/05/16 04:00 11/05/16 04:03 11/05/16 04:54 11/05/16 09:30 Lactic Acid Level 1.2mmol/L (0.4-2.0) Hold Rivera Top Tube Received (Received) Pro-B-Type Natriuretic Peptide 2205pg/mL (0-738) Thyroid Stimulating Hormone (TSH) 2.060uIU/mL (0.450-4.500) Urine Legionella pneumophilia Ag Negative (Negative) Urine Color Straw (YELLOW) Urine Appearance Clear (CLEAR,HAZY) Urine pH 6.0 (5.0-8.0) Urine Specific [place] 1.010 (1.003-1.035) Urine Protein Negativemg/dL (NEG,TRACE) Urine Glucose (UA) Negativemg/dL (NEGATIVE) Urine Ketones Negativemg/dL (NEGATIVE) Urine Occult Blood Negative (NEGATIVE) Urine Nitrite Negative (NEGATIVE) Urine Bilirubin Negative (NEGATIVE) Urine Urobilinogen Normalmg/dL (NORMAL) Urine Leukocyte Esterase Negative (NEGATIVE) Urine RBC 0-2/hpf (0-2) Urine WBC 0-5/hpf (0-5) Urine Epithelial Cells Occasional/hpf (NONE-MOD) Urine Crystals None seen (NONE SEEN) Urine Bacteria None/hpf (NONE-FEW) Urine Hyaline Casts None/lpf (NONE) Urine Granular Casts None seen (NONE SEEN) Urine Waxy Casts None seen (NONE SEEN) Urine Red Blood Cell Casts None seen (NONE SEEN) Urine White Blood Cell Casts None seen (NONE SEEN) Urine Mucus None seen (None Seen) Urine Trichomonas None seen (NONE SEEN) Urine Yeast None (NONE SEEN) Urinalysis Comment None Urine Culture Reflexed Not indicated Hold Urine Received (Received) Test 11/06/16 00:25 11/07/16 02:35 11/08/16 02:50 11/09/16 02:25 Troponin T 0.010ug/L (0.0-0.011) Procalcitonin 0.12ng/mL (0.00-0.08) Phosphorus Level 3.7mg/dL (2.5-4.9) Magnesium Level 1.9mg/dL (1.6-2.6) White Blood Count 4.2th/mm3 (3.8-10.1) Red Blood Count 4.12mil/mm3 (3.90-5.20) Hemoglobin 12.4g/dL (12.0-15.6) Hematocrit 38.1% (35.0-46.0) Mean Corpuscular Volume 92.5fL (81-100) Mean Corpuscular Hemoglobin 30.1pg (27.0-35.0) Mean Corpuscular Hemoglobin Concent 32.5% (32.0-37.0) Red Cell Distribution Width 14.0% (12.3-15.4) Platelet Count 155bil/L (150-400) Neutrophils (%) (Auto) 48.3% (40-74) Lymphocytes (%) (Auto) 38.0% (14-46) Monocytes (%) (Auto) 9.5% (4-12) Eosinophils (%) (Auto) 1.9% (0-5) Basophils (%) (Auto) 2.1% (0-3) Band Neutrophils % 0% (1-5) Sodium Level 141mEq/L (134-144) Potassium Level 4.5mEq/L (3.5-5.2) Chloride Level 104mEq/L (97-108) Carbon Dioxide Level 26mmol/L (18-29) Blood Urea Nitrogen 12mg/dL (8-27) Creatinine 0.68mg/dL (0.57-1.00) Estimat Glomerular Filtration Rate 120mL/min (>59) Glucose Level 117mg/dL (60-99) Calcium Level 8.4mg/dL (8.5-10.1) Total Bilirubin 0.5mg/dL (0.0-1.2) Aspartate Amino Transf (AST/SGOT) 24U/L (0-50) Alanine Aminotransferase (ALT/SGPT) 34U/L (0-32) Alkaline Phosphatase 52U/L (25-165) Total Protein 5.6g/dL (6.4-8.4) Albumin 3.1g/dL (3.4-5.0) Microbiology Results Respiratory PCR positive for influenza A H3 Discharge Medications Discharge Medications Amiodarone (Amiodarone) 200 Mg Tablet 400 MG PO BID Prescribed by: HOWARD RIVERA DO Amoxicillin/Clav K 500-125 mg (Augmentin 500) 1 Tab Tab 1 TABLET PO Q8H Prescribed by: HOWARD RIVERA DO Ascorbate Calcium (Vitamin C) 500 Mg Tablet 500 MG PO DAILY (Reported) Calcium Carbonate (Calcium) 600 Mg Tablet 600 MG PO DAILY (Reported) Cartilage/Collagen/Bor/Hyalur (Joint Health Tablet) 40 Mg-10 Mg-5 Mg-3.3 Mg Tablet 1 EACH PO DAILY (Reported) Metoprolol Succinate ER (Metoprolol Succinate ER) 25 Mg Tab.er.24h 12.5 MG PO BID Prescribed by: HOWARD RIVERA DO Vit B Comp/C/FA/Iron/Vit E (Vitamin B Complex Tablet) 1 Each Tablet 1 EACH PO DAILY (Reported) Additional med instructions You were started on two new medications. Amiodarone and metoprolol which are meant to control your heart rate and rhythm. Please continue to take these medications until you see cardiology. You have completed a course of Tamiflu for your influenza. You will need to complete a course of Augmentin for your pneumonia. Followup Plan Disposition: She was discharged home with 24-7 home health. Discharge Diet: Heart Healthy Discharge Activity: Limited until seen by PCP, Home Health Phyical Therapy Patient Instructions Please follow up with your primary care provider in about one week. Please follow up with Dr. Vázquez in 3-4 weeks. Follow-up Provider: Faith Garcia PA-C Follow-up with PCP in: 1 week Provider: Frantz Vázquez MD Follow-up in: 4 weeks Time spent Time spent on discharging this patient was greater than 35 minutes, over half of which was involved in counseling and coordination of care. Attending Statement Patient was seen and examined with Dr. Rivera. Chart was reviewed and agree with the above discharge summary. Howard Rivera DO November 10, 2016 16:03 Tino Mabry MD November 10, 2016 21:08
== END 2016-11-10 13:15 | disposition home health service (06) | DRG 308 ==
LOC: PCC 03:33
PROVIDERS: ADMIT Hospitalist; ATTEND Hospitalist
PROC: 3E040RZ Introduction of Antiarrhythmic into Central Vein, Open Approach (ICD-10-PCS; principal; 2016-11-05)
DX: I48.91 Unspecified atrial fibrillation (principal); J10.00 Influenza due to other identified influenza virus with unspecified type of pneumonia; Z66 Do not resuscitate; R74.0 Nonspecific elevation of levels of transaminase and lactic acid dehydrogenase [LDH]; Z85.3 Personal history of malignant neoplasm of breast

== ENCOUNTER 2017-01-19 22:12 | Inpatient (IN) | payer MEDICARE, OTHER ==
[~2017-01-19] VITALS: Ht 167.6 cm; Wt 82.0 kg
[~2017-01-19 22:12] MED LIST changes: +AMIO200T PO; +AMOX1TAB11 PO; +ASCO-294 PO; +CALC600T12 PO; +CART1TAB5 PO; -HYDR-4003 PO; +METO25TA99 PO; +VIT1TABL83 PO
[2017-01-19 22:16] VITALS: BP 168/63; PULSE 69; RESP 16; O2SAT 95
--- NOTE | 2017-01-19 22:29 | ED.REPORT ---
HPI-General Illness Date of Service Jan 19, 2017 ED Provider: Jaime Seay MD The patient is a 81 year old female who presents to the ED via EMS c/o 04/11, intense, right hip pain that radiates from the inner to outer thigh after a ground level fall about 1-1/2 hours prior to arrival. Pt reached down, lost her balance and fell on her right hip. Pain is exacerbated by movement. She has had 2 left sided hip fractures in the past. She was not feeling lightheaded prior to the event, and states that she clearly just tripped. Pt was given 50 mg of fentanyl en route and 4 milligrams Zofran. She denies hitting her head, chest pain, shortness of breath, nausea, vomiting, lightheadedness, syncope, dizziness , bladder or bowel dysfunction or any other symptoms. Nursing Notes Stated Complaint: GLF/ RT HIP PAIN Chief Complaint: Extremity Trauma Nursing Notes Reviewed: Yes Allergies: Coded Allergies: levofloxacin (Verified Allergy, Mild, 11/05/16) pt cannot recall reaction, states "adverse". Pt states made pneumonia worse. Sulfa (Sulfonamide Antibiotics) (Verified Allergy, Unknown, 08/25/10) erythromycin base (Verified Allergy, Unknown, 08/25/10) guaifenesin (Verified Allergy, Unknown, Shortness of Breath, 11/05/16) pt states she felt spasms, and warmth/heat all over loratadine (Verified Allergy, Unknown, Shortness of Breath, 11/05/16) pt states she felt spasms, and warmth/heat all over risedronate sodium (Verified Adverse Reaction, Unknown, increased pain, 12/07/15) Scheduled Amiodarone (Amiodarone) 200 Mg Tablet 400 MG PO BID Amoxicillin/Clav K 500-125 mg (Augmentin 500) 1 Tab Tab 1 TABLET PO Q8H Ascorbate Calcium (Vitamin C) 500 Mg Tablet 500 MG PO DAILY Calcium Carbonate (Calcium) 600 Mg Tablet 600 MG PO DAILY Cartilage/Collagen/Bor/Hyalur (Joint Health Tablet) 40 Mg-10 Mg-5 Mg-3.3 Mg Tablet 1 EACH PO DAILY Metoprolol Succinate ER (Metoprolol Succinate ER) 25 Mg Tab.er.24h 12.5 MG PO BID Vit B Comp/C/FA/Iron/Vit E (Vitamin B Complex Tablet) 1 Each Tablet 1 EACH PO DAILY General Time Seen by : 22:12 Chief Complaint Other (right hip pain) Hx Obtained From: Patient Arrived By: Ambulance Sudden in Onset?: Yes Onset Occurred: Just prior to arrival Symptom Duration: Since onset Location: : Hip right Quality: Painful Severity: Current: No pain currently Severity: Maximum: Pain level 10 out of 10 Recent Healthcare: No recent doctor visit Similar Sx Previous: No Past Medical History Past Medical History breast cancer Past Surgical History right mastectomy in 1996 L eft hip fracture, status post repair by Dr. Ronquillo in Orthopedics Smoking History Never Smoker Social History was getting ready for home palliative care consult today, was helping with toileting when she stumbled and fell. She is pirmary rn palliative care Alcohol Use: Denies alcohol use Drug Use: Denies drug use Other Social History: Good social support, , Local resident Ambulatory Status Independent Review of Systems Full Review of Systems Respiratory: Denies: Shortness of breath GI: Denies: Nausea, Vomiting Musculoskeletal: Reports: Joint pain (right hip) Neurologic: Denies: Bladder dysfunction, Bowel dysfunction, Change LOC, Dizziness, Headache, Syncope, Weakness Complete sys rev & neg: except as marked. Physical Exam General: Airway patent, GCS of 15 --- eyes (4), verbal (5), motor (6) HEENT: Right eye normal with pupils 4-3 and briskly reactive Left eye normal with pupils 4-3 and briskly reactive Left tympanic membrane normal, right tympanic membrane normal Midface stable, no malocclusion No nasal septal hematoma No obvious external signs of trauma to the scalp appreciated Neck: nontender, trachea midline Lungs: Clear to auscultation bilaterally, normal work of breathing Chest: Stable without tenderness, no crepitus Cardiac: Regular rate and rhythm Abdomen: Normal, non-tender, non-distended. Back: No bruising, tenderness, or step-offs Pelvis: Stable Skin: Warm and well perfused Extremities: Left upper extremity grossly normal, no deformity. Left lower extremity grossly normal, no deformity. Pain with internal rotation of right leg. No ecchymosis on RLE. Tenderness on lateral aspect of right hip. No right knee tenderness. Pulses intact. Right upper extremity grossly normal, no deformity. Pulses: Palpable to bilateral upper and lower extremities. Neuro: Motor and sensory exams grossly within normal limits; patient localizes to pain. Vital Signs Vital Signs Date Time Temp Pulse Resp B/P Pulse Ox O2 Delivery O2 Flow Rate FiO2 01/19/17 22:16 69 16 168/63 95 Nasal Cannula 2 Initial VS: Reviewed Interpretation & Diagnostics Lab Results Interpretation Result Diagram: 01/19/170 01/19/170 Test 01/19/17 23:50 01/20/17 00:00 White Blood Count 8.0th/mm3 (3.8-10.1) Red Blood Count 4.25mil/mm3 (3.90-5.20) Hemoglobin 12.7g/dL (12.0-15.6) Hematocrit 38.8% (35.0-46.0) Mean Corpuscular Volume 91.3fL (81-100) Mean Corpuscular Hemoglobin 29.9pg (27.0-35.0) Mean Corpuscular Hemoglobin Concent 32.7% (32.0-37.0) Red Cell Distribution Width 15.5% (12.3-15.4) Platelet Count 189bil/L (150-400) Neutrophils (%) (Auto) 74.9% (40-74) Lymphocytes (%) (Auto) 14.1% (14-46) Monocytes (%) (Auto) 9.6% (4-12) Eosinophils (%) (Auto) 0.4% (0-5) Basophils (%) (Auto) 0.6% (0-3) Prothrombin Time 10.0sec (8.1-12.5) Prothromb Time International Ratio 0.94ratio Sodium Level 136mEq/L (134-144) Potassium Level 4.5mEq/L (3.5-5.2) Chloride Level 102mEq/L (97-108) Carbon Dioxide Level 18mmol/L (18-29) Blood Urea Nitrogen 16mg/dL (8-27) Creatinine 0.83mg/dL (0.57-1.00) Estimat Glomerular Filtration Rate 95mL/min (>59) Glucose Level 131mg/dL (60-99) Calcium Level 8.8mg/dL (8.5-10.1) Magnesium Level 2.1mg/dL (1.6-2.6) Total Bilirubin 0.4mg/dL (0.0-1.2) Aspartate Amino Transf (AST/SGOT) 25U/L (0-50) Alanine Aminotransferase (ALT/SGPT) 28U/L (0-32) Alkaline Phosphatase 78U/L (25-165) Troponin T 0.010ug/L (0.0-0.011) Total Protein 6.9g/dL (6.4-8.4) Albumin 3.8g/dL (3.4-5.0) Lipase 20U/L (13-60) Alcohols < 10mg/dL (0-10) Hold Rivera Top Tube Received (Received) Lab Results Interpretation: LABS: CBC grossly within normal limits CMP pending at time of admission Coags grossly within normal limits ECG Interpretation ECG Interpretation: left ventricular hypertrophy Time: 22:51 Interpreted by: ED physician Normal ECG Interpretation: Normal sinus rhythm (rate 68) X-Ray Chest Interpretation Chest Xray Interpretation: IMPRESSION: no acute findings View: Portable Interpretation / Wet Read by: Wet read ED physician X-Ray Interpretation Xray Interpretation: RIGHT HIP X-RAY IMPRESSION: Intertrochanteric fracture X-Ray Ordered: Hip right Interpretation / Wet Read by: Interpret - Radiologist CT Head Interpretation CT HEAD IMPRESSION: No acute intracranial hemorrhage or calvarial fractures. Senescent changes. Study: Head CT no contrast Interpretation / Wet Read by: Interpret - Radiologist CT C-Spine Interpretation IMPRESSION: No acute fracture or subluxation of the cervical sine. Moderate spondylitic changes. Interlobular septal thickening in the upper lugns is nonspecific, correlate for interstitial edema/CHF. Study type: CT no contrast Interpretation / Wet Read by: Interpret - Radiologist Re-Eval/Medical Decision Med Decision/Clinical Course In summary, 81-year-old female presenting to the ED for evaluation after a fall approximately 1.5 hours prior to arrival. She did not hit her head or experiencing loss of consciousness. She did not feel lightheaded, have chest pain, or have neurologic symptoms prior to the fall; I suspect that this was a clear mechanical etiology. No clinical evidence of trauma to the chest or abdomen. CT scan of the head demonstrated no acute bleed. CT of the cervical spine with no acute fracture; able to clear cervical spine at bedside. EKG demonstrates sinus rhythm with no acute ischemic changes. Plain films of the patient's right hip demonstrate a intertrochanteric fracture. Neurovascular status intact distal to the injury. I discussed these findings with Dr. Manning, who recommended admission overnight, nothing by mouth now and will likely take her to the operating room tomorrow. I discussed these findings with the patient and family at length; all questions answered. Time of Eval: 00:45 Patient Status: Pain improved Re-Evaluation/Progress Note: Pt rechecked. Imaging shows right hip fracture. Plan for admission. Consultation #1: Referral / Consult Name: Joseph Manning DO Consulted With: Orthopedic Call Returned at: 00:46 Lunchroom Aide: Agrees with eval, Agrees with plan Note: Case discussed. Intertrochanteric fracture. Plan for admission. NPO tonight and will take to the OR tomorrow. Consultation #2: Referral / Consult Name: Zuhair Majano MD Consulted With: Hospitalist Call Returned at: 00:58 Lunchroom Aide: Agrees with eval, Agrees with plan, Accepts admit Note: Case discussed. Dr. Majano accepts admit. Counseled Regarding: Diagnosis, Lab results, Need for admission Discharge & Departure Primary Impression: Closed right hip fracture Encounter type: initial encounter Qualified Code: S72.001A - Fracture of unspecified part of neck of right femur, initial encounter for closed fracture Disposition: ADMITTED TO HOSPITAL Discharge Condition All VS Reviewed: Yes Condition: Stable Referrals: Faith Garcia PA-C (PCP) Kunal Attestation Portion of this note were transcribed by Claire Aldana. I, Dr. Seay, personally performed the history, physical exam, and medical decision-making: I reviewed and confirmed the accuracy for the information in the transcribed note. Signed by: kunal Maradiaga, 01/19/17 2300 copies to: Faith Garcia PA-C, William B MD Jan 19, 2017 22:29 Claire Aldana Jan 19, 2017 22:42 personally performed the history, physical exam, and medical decision-making: I reviewed and confirmed the accuracy for the information in the transcribed note. Signed by: kunal Maradiaga, 01/19/17 2300 copies to: Faith Garcia PA-C, William B MD Jan 19, 2017 22:29 Claire Aldana Jan 19, 2017 22:42 Jaime Seay MD Jan 19, 2017 22:29 Claire Aldana Jan 19, 2017 22:42
[2017-01-19] MEDS ORDERED: 0.9% Sodium Chloride 1,000 ML IV ONE (22:30)
[2017-01-19] MEDS ORDERED: HYDROmorphone 0.5 mg/0.5 mL iSecure Syringe IVPUSH PRN (22:30)
[2017-01-19] MEDS ORDERED: Ondansetron 2 mg/mL 2 mL Inj IVPUSH PRN (22:30)
[2017-01-20] VITALS (21 sets, daily range): BP systolic 92–168; BP diastolic 40–82; PULSE 58–84; RESP 10–19; O2SAT 93–100
[2017-01-20 00:06] LABS: BASOPHILS % (AUTO) 0.6 % (0-3); EOSINOPHILS % (AUTO) 0.4 % (0-5); MONOCYTES % (AUTO) 9.6 % (4-12); Mean Corpuscular Hemoglobin 29.9 pg (27.0-35.0); Mean Corpuscular Volume 91.3 fL (81-100); NEUTROPHILS % (AUTO) 74.9 % (40-74); Platelet Count 189 bil/L (150-400)
[2017-01-20 00:38] LABS: INR 0.94 ratio
[2017-01-20 00:57] LABS: Lipase 20 U/L (13-60); Magnesium 2.1 mg/dL (1.6-2.6)
[2017-01-20] MEDS ORDERED: Alum-Mag Hydrox-Simeth 30 mL Suspension PO PRN (01:05)
[2017-01-20] MEDS ORDERED: Polyethylene Glycol (PEG) 17 Gm Powder PO PRN ×2 (01:05→16:50)
[2017-01-20] MEDS ORDERED: Ondansetron 2 mg/mL 2 mL Inj IVPUSH PRN ×2 (01:05→17:05)
--- NOTE | 2017-01-20 01:49 | PCM.HPMED ---
Subjective Date of Service Jan 20, 2017 Primary Provider: Admitting Physician: Primary Care Physician: Faith Garcia PA-C Attending Physician: Admit Status: From the Emergency Department, Full Admit, Non-Telemetry Chief Complaint: Right hip pain after fall History of Present Illness: Vaishali Heart is a 81 year old female with Chronic Atrial Fibrillation on anticoagulations, breast Cancer who presents to [facility] emergency department via EMS c/o 04/11, intense, right hip pain that radiates from the inner to outer thigh after a ground level fall. According to the patient she was at her home cleaning when she reached down, then lost her balance and fell on her right hip. She denies any loss of consciousness. Pain is exacerbated by movement and rated as 9/10 intensity without any radiation. She had a hard time trying to get up and was having trouble walking and applying pressure to her right leg. She denies hitting her head, chest pain, shortness of breath, nausea, vomiting, lightheadedness, syncope, dizziness, bladder or bowel dysfunction She has had 2 left sided hip fractures in the past with Dr Ronquillo. She was diagnosed with A fib earlier this year and takes both Amiodarone and Metoprolol. She was suppose to take Eliquis but decides on just Aspirin Case discussed with Dr Seay. He spoke to Dr Manning who recommended admission for surgery. Review of Systems: Pertinent positives as noted in HPI. All other systems were reviewed and are negative Allergies Coded Allergies: levofloxacin (Verified Allergy, Mild, 11/05/16) pt cannot recall reaction, states "adverse". Pt states made pneumonia worse. Sulfa (Sulfonamide Antibiotics) (Verified Allergy, Unknown, 08/25/10) amoxicillin (Verified Allergy, Unknown, 01/20/17) erythromycin base (Verified Allergy, Unknown, 08/25/10) guaifenesin (Verified Allergy, Unknown, Shortness of Breath, 11/05/16) pt states she felt spasms, and warmth/heat all over risedronate sodium (Verified Adverse Reaction, Unknown, increased pain, 12/07/15) Home Medications From [facility], medications not confirmed Vaishali Heart. [id number] 1935 01/13/2017 11:30 AM 07/06 amiodarone 200 mg tablet take 1 tablet by oral route every day Eliquis 5 mg tablet take 1 tablet by oral route 2 times every day loratadine 10 mg tablet take 2 Tablet by oral route every day metoprolol succinate ER 25 mg tablet,extended release 24 hr take 1/2 tab (12.5 mg) by oral route twice daily PMH Breast cancer status post resection with chemotherapy and radiation therapy. 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 Surgical History right mastectomy in 1996 L eft hip fracture, status post repair by Dr. Ronquillo in Orthopedics Family History Father had Stroke 80s and from complications Mother had Kidney cancer No family history of any Cardiac disease Social History Hx Alcohol Use: No Hx Substance Use: No Hx Tobacco Use: No Smoking Status: Never Smoker Living Arrangement: Alone Exam Vital Signs Vital Sign - Last Date Time Temp Pulse Resp B/P Pulse Ox O2 Delivery O2 Flow Rate FiO2 01/19/17 22:16 69 16 168/63 95 Nasal Cannula 2 Exam General: Alert, Oriented X3, Cooperative, No acute Distress Eyes: PERRLA, Scleral Anicteric Mouth: Mouth Normal, Mucous Membranes Moist/Daniel Neck: Supple, no Thyromegaly, trachea central. Chest & Lungs: Clear to auscultation & percussion, No adventitious breath sounds, no crackles, no wheeze Cardiovascular: Normal S1, Normal S2, No Murmurs/Rubs/Gallops, sinus rhythm (No JVD, no peripheral edema) Pulses: Radial (present and equal), Dorsalis Pedi (present and equal) Abdomen: Soft, Non-tender, Non-distended, Normoactive bowel tones. Musculoskeletal: Limited right hip mobility, tenderness, right leg shortened and externally rotated Extremities: No edema, no cyanosis, no clubbing. Skin: No rashes. Warm and dry, no erythematous areas Neurological: Grossly neurologically intact, Normal Speech, Sensation Intact Lymphatic: Lymph nodes Cervical and Axillary not palpable. Lab and Diagnostics Labs Laboratory Tests Test 01/19/17 23:50 01/20/17 00:00 White Blood Count 8.0th/mm3 (3.8-10.1) Red Blood Count 4.25mil/mm3 (3.90-5.20) Hemoglobin 12.7g/dL (12.0-15.6) Hematocrit 38.8% (35.0-46.0) Mean Corpuscular Volume 91.3fL (81-100) Mean Corpuscular Hemoglobin 29.9pg (27.0-35.0) Mean Corpuscular Hemoglobin Concent 32.7% (32.0-37.0) Red Cell Distribution Width 15.5% (12.3-15.4) Platelet Count 189bil/L (150-400) Neutrophils (%) (Auto) 74.9% (40-74) Lymphocytes (%) (Auto) 14.1% (14-46) Monocytes (%) (Auto) 9.6% (4-12) Eosinophils (%) (Auto) 0.4% (0-5) Basophils (%) (Auto) 0.6% (0-3) Prothrombin Time 10.0sec (8.1-12.5) Prothromb Time International Ratio 0.94ratio Sodium Level 136mEq/L (134-144) Potassium Level 4.5mEq/L (3.5-5.2) Chloride Level 102mEq/L (97-108) Carbon Dioxide Level 18mmol/L (18-29) Blood Urea Nitrogen 16mg/dL (8-27) Creatinine 0.83mg/dL (0.57-1.00) Estimat Glomerular Filtration Rate 95mL/min (>59) Glucose Level 131mg/dL (60-99) Calcium Level 8.8mg/dL (8.5-10.1) Magnesium Level 2.1mg/dL (1.6-2.6) Total Bilirubin 0.4mg/dL (0.0-1.2) Aspartate Amino Transf (AST/SGOT) 25U/L (0-50) Alanine Aminotransferase (ALT/SGPT) 28U/L (0-32) Alkaline Phosphatase 78U/L (25-165) Troponin T 0.010ug/L (0.0-0.011) Total Protein 6.9g/dL (6.4-8.4) Albumin 3.8g/dL (3.4-5.0) Lipase 20U/L (13-60) Alcohols < 10mg/dL (0-10) Hold Rivera Top Tube Received (Received) Result Diagram: 01/19/17234901/19/172349 Assessment & Plan Vaishali Heart is a 81 year old female with Chronic Atrial Fibrillation on anticoagulations, breast Cancer who presents to [facility] emergency department via EMS found to have right hip fractures 1 Acute right Hip fracture. Present on admission Secondary to mechanical fall. No syncope noted. Patient is an acceptable candidate for surgery. She has no increased cardiovascular risk. She has excellent exercise tolerance and I do not recommend any further cardiac testing. Only concern is a Stroke given her CHADS 2 score and will need to be closely monitored - nothing by mouth - Dr Manning consult from Orthopedic who will operate - pain control with Dilaudid 0.5 mg Iv q 4 hours PRN pain - Physical therapy assessment after surgery to aid placement - SCD boot for DVT, patient on Eliquis which will be held prior to surgery 2 Chronic Atrial Fibrillation Recent diagnosis this year. Patient refused Eliquis recommended by Dr Vázquez but is on Aspirin - monitor on telemetry - continue Aspirin for anticoagulations - continue Amiodarone and Metoprolol for rate control 3 History of Breast Cancer. in remission - Acetaminophen as needed for mild pain/fever/headache - Bowel regimen as needed - Antiemetic as needed Patient admitted under inpatient status with expected length of stay > 2 midnights for severity of present symptoms, complexities of treatment plan and risk for adverse event . Resuscitation Status: DNR/DNI:Do Not Resuscitate/Intubate Zuhair Majano MD Jan 20, 2017 01:11 Zuhair Majano MD Jan 20, 2017 01:11
[2017-01-20] MEDS: HYDROmorphone 1 mg/mL Inj IVPUSH PRN ×7 (02:05→19:47)
[2017-01-20] MEDS ORDERED: AMIO200T PO (02:40)
[2017-01-20] MEDS ORDERED: ASPI-973 PO (02:44)
[2017-01-20] MEDS ORDERED: ASPI325T32 PO (02:49)
[2017-01-20] MEDS: 0.9% Sodium Chloride 1,000 ML IV SCH ×3 (03:03→21:02)
[2017-01-20 03:54] LABS: APPEARANCE,URINE CLEAR (CLEAR,HAZY); COLOR,URINE YELLOW (YELLOW); OCCULT BLOOD,URINE NEGATIVE (NEGATIVE); UROBILINOGEN,URINE NORMAL (NORMAL)
--- NOTE | 2017-01-20 04:25 | NUR ---
Admit Note Pt. arrived on floor at 0225. Pt. was alert and oriented x3. Family present. Pt's peripheral IV intact and patent. Pt. was oriented to room. Pt. denied pain. Pain med given in ER before arrival to floor. Bedding accommodations made for sister. Pt. was educated on NPO status. Pt. was also educated on how a schilling catheter works, and a schilling catheter was placed draining clear, yellow urine. Telemetry placed as ordered by Erich MEEK. Call light within reach. Will continue to monitor.
--- NOTE | 2017-01-20 07:44 | DRSVH ---
PROCEDURE: CT BRAIN WITHOUT CONTRAST ([id number]) INDICATIONS: 81 year-old woman with fall. TECHNIQUE: Noncontrast 4.5 mm thick angled axial sections acquired from the foramen magnum to the vertex, with c oronal reformats. COMPARISON: None. FINDINGS: Image quality: Excellent. CSF spaces: Basal cisterns are patent. No extra-axial fluid collections. The ventricles are symmet xiomara in size and shape. Brain: No intracranial bleeds or masses. There is mild cerebral volume loss for age, with resultant ventricular and sulcal prominence. There are mild periventricular and deep white matter chronic sma ll vessel ischemic changes. There is intracranial internal carotid artery atherosclerosis. Skull and face: Calvarium and visualized facial bones appear intact, without suspicious lesions. Sinuses: Visualized sinuses and mastoids are clear. IMPRESSION: 1. No acute intracranial abnormalities. 2. Cerebral volume loss and chronic microvascular ischemic changes. No significant discrepancy with the night time nanny radiology preliminary report. Dictated by: Marcela Jhaveri M.D. on 01/20/2017 at 7:41 Approved by: Marcela Jhaveri M.D. on 01/20/2017 at 7:42
--- NOTE | 2017-01-20 07:47 | DRSVH ---
PROCEDURE: CT CERVICAL SPINE WITHOUT CONTRAST ([id number]) INDICATIONS: 81 year-old woman with fall. TECHNIQUE: Noncontrast 3 mm thick sections acquired from the skull base to the T4 level. Sagittal and coronal r eformats were then constructed. For radiation dose reduction, the following was used: automated exp osure control, adjustment of mA and/or kV according to patient size. COMPARISON: None. FINDINGS: Image quality: Excellent. Bones: No fractures or dislocations. Visualized superior ribs are intact. There is degenerative di sc disease, moderate at C4-C5, severe at C6-C7. There is uncovertebral hypertrophy at C6-C7. Mild augusto ateral facet arthropathy, most pronounced at C2-C3 on the left. Soft tissues: Prevertebral soft tissues are normal in thickness. No paravertebral hematomas. No ap ical pneumothoraces. There is diffuse interstitial prominence in the lung apices bilaterally. IMPRESSION: 1. No cervical spine fracture. 2. Degenerative disc disease, uncovertebral hypertrophy and facet arthropathy in cervical spine. 3. Diffuse interstitial prominence in the lung apices. No significant discrepancy with the maintenance mechanic 2nd shift radiology preliminary report. Dictated by: Marcela Jhaveri M.D. on 01/20/2017 at 7:42 Approved by: Marcela Jhaveri M.D. on 01/20/2017 at 7:45
--- NOTE | 2017-01-20 09:31 | DRSVH ---
PROCEDURE: X-RAY PELVIS, ONE OR TWO VIEWS ([id number]) INDICATIONS: fall, hip pain TECHNIQUE: Single view(s) of the pelvis acquired. COMPARISON: [facility], ANDRAE, XR HIP 2VW RT, 01/19/2017, 23:12. [facility], CR , PELVIS 1 OR 2VW, 08/25/2010, 11:00. FINDINGS: Bones: Comminuted fracture involving the right femur lesser trochanter. Lower lumbar discogenic dawson es. Dynamic wyatt and screw fixation of the proximal left femur. Soft tissues: Visualized bowel gas pattern is normal. No suspicious soft tissue calcifications. IMPRESSION: Comminuted right femur fracture as above involving the lesser trochanter. Dictated by: Dawson Vanegas M.D. on 01/20/2017 at 9:27 Approved by: Dawson Vanegas M.D. on 01/20/2017 at 9:30
--- NOTE | 2017-01-20 09:32 | DRSVH ---
PROCEDURE: X-RAY RIGHT KNEE, ONE OR TWO VIEWS ([id number]) INDICATIONS: hip pain post fall TECHNIQUE: 2 views of the knee were acquired. COMPARISON: None. FINDINGS: Bones: No fractures or dislocations. No suspicious bony lesions. There is moderate knee joint degen eration Soft tissues: No joint effusion. No suspicious soft tissue calcifications. IMPRESSION: No fracture. Moderate right knee joint degeneration Dictated by: Dawson Vanegas M.D. on 01/20/2017 at 9:30 Approved by: Dawson Vanegas M.D. on 01/20/2017 at 9:31
--- NOTE | 2017-01-20 09:33 | DRSVH ---
PROCEDURE: X-RAY RIGHT HIP COMPLETE, MINIMUM TWO VIEWS ([id number]) INDICATIONS: hip pain post fall TECHNIQUE: 2 views of the hip were acquired. COMPARISON: None. FINDINGS: Bones: Comminuted fracture involving the lesser trochanter of the right femur. Right femoral head dorcas ears seated within the right acetabulum. Lower lumbar discogenic changes. Soft tissues: No suspicious soft tissue calcifications or masses. IMPRESSION: Comminuted proximal right femur fracture involving the lesser trochanter. Dictated by: Dawson Vanegas M.D. on 01/20/2017 at 9:31 Approved by: Dawson Vanegas M.D. on 01/20/2017 at 9:32
--- NOTE | 2017-01-20 09:34 | DRSVH ---
PROCEDURE: X-RAY FEMUR, 1 VIEW RIGHT INDICATIONS: hip pain post fall TECHNIQUE: 4 views of the femur were acquired. COMPARISON: None. FINDINGS: Bones: Comminuted moderately displaced fracture of the right femur lesser trochanter. No suspicious b no lesions. Soft tissues: No suspicious soft tissue calcifications or masses. IMPRESSION: Comminuted,displaced right femur lesser trochanter fracture. Dictated by: Dawson Vanegas M.D. on 01/20/2017 at 9:32 Approved by: Dawson Vanegas M.D. on 01/20/2017 at 9:33
--- NOTE | 2017-01-20 09:37 | DRSVH ---
PROCEDURE: X-RAY CHEST ONE VIEW, PORTABLE ([id number]) INDICATIONS: preop, fall TECHNIQUE: One view of the chest was acquired. COMPARISON: [facility], CR, XR CHEST 2VW, 11/05/2016, 20:51. [facility], CR , XR CHEST 2VW, 12/12/2016, 14:03. FINDINGS: Surgical changes and devices: None. Lungs and pleura: No pleural effusions or pneumothorax. No acute consolidation. There is diffuse int erstitial change as before. Mediastinum: Mediastinal contours appear normal. Heart size is normal. Bones and chest wall: No suspicious bony lesions. Overlying soft tissues appear unremarkable. IMPRESSION: Chronic diffuse interstitial changes as before. No new focal consolidation. Dictated by: Dawson Vanegas M.D. on 01/20/2017 at 9:33 Approved by: Dawson Vanegas M.D. on 01/20/2017 at 9:36
[2017-01-20] MEDS ORDERED: MetoCLOpramide 5 mg/mL 2 mL Inj ONE (09:51)
[2017-01-20] MEDS ORDERED: EPHEDrine/NS 5 mg/mL 5 mL Syringe ONE (09:51)
[2017-01-20] MEDS ORDERED: Dexamethasone 4 mg/mL Inj ONE (09:51)
[2017-01-20] MEDS ORDERED: fentaNYL-PF 50 mCg/mL 2 mL Inj ONE ×2 (09:51→19:17)
[2017-01-20] MEDS ORDERED: Phenylephrine/NS 100 mCg/mL 10 mL Syringe IVPUSH ONE (09:51)
[2017-01-20] MEDS ORDERED: Propofol 10,000 mCg/mL 20 mL Inj ONE (09:51)
[2017-01-20] MEDS ORDERED: Succinylcholine Chloride 20 mg/mL 5 mL Inj ONE (09:51)
[2017-01-20] MEDS ORDERED: Ondansetron 2 mg/mL 2 mL Inj ONE ×2 (09:51→19:58)
[2017-01-20] MEDS: MeTOProlol XL 25 mg ER24 Tablet PO SCH ×2 (11:04→20:30)
--- NOTE | 2017-01-20 11:28 | CONS ---
[address] [address] CONSULTATION REPORT PATIENT: TRACI CH : 1935 MR#: [id number] ADMIT: 01/20/2017 JOB ID: [id number] DATE OF SERVICE: 01/20/2017 ORTHOPEDIC CONSULTATION: CHIEF COMPLAINT: Right hip pain. HISTORY OF PRESENT ILLNESS: This is a pleasant 81-year-old female that presented earlier last evening with right hip pain. She was bending down to wash the base boards when she lost her balance. She states she hit an empty gun case and fell onto the right side. She was unable to further ambulate onto the right lower extremity due to the pain. She describes the pain to the lateral aspect of the hip with radiation to the groin. She also describes some muscle soreness that she states just needs massaging to the proximal aspect of the lower leg. She denies any numbness or tingling. She denies any other associated symptoms or injuries. Yesterday evening following the fall she was transported to [facility]. Radiographs were obtained that demonstrated an intertrochanteric hip fracture. Orthopedics was consulted for further evaluation and treatment. PAST MEDICAL HISTORY: 1. Atrial fibrillation. 2. Breast cancer. 3. Polio. 4. Hypertension. PAST SURGICAL HISTORY: 1. Open reduction, internal fixation of left hip secondary to an intertrochanteric hip fracture with a sliding hip screw. 2. Mastectomy. FAMILY HISTORY: Noncontributory. SOCIAL HISTORY: The patient denies any tobacco, alcohol or illicit drug use. She is currently in the process of moving to [facility] in [place]. MEDICATIONS: Please see electronic medical record for full list of the patient's medications. ALLERGIES: LEVAQUIN, SULFA, AMOXICILLIN, ERYTHROMYCIN, GUAIFENESIN, RISEDRONATE. REVIEW OF SYSTEMS: The patient denies any fevers, sweats, chills, chest pain, short of breath, nausea, vomiting, diarrhea. Complains mainly of right hip and lower leg pain as described in history of present illness. PHYSICAL EXAMINATION: General: The patient is alert, no apparent distress. HEENT: Normocephalic, atraumatic. Extraocular movements intact. Nares patent. Lungs without wheeze. Alert and oriented x3, in no acute distress. Neuro: Cranial nerves 2-12 are intact. Extremities: On gross observation of the patient's right lower extremity, no open wounds, abrasions, ecchymosis. The patient has tenderness to palpation to the lateral hip as well as the groin and pain with log roll and axial loading of the lower extremity. There is also tenderness to palpation to the medial joint line of the knee and to the proximal medial aspect of the lower leg. There is palpable dorsalis pedis and posterior tib pulses and completely intact sensation in the right lower extremity. She is able to dorsiflex and plantar flex the ankle without any difficulty. DIAGNOSTIC STUDIES: AP of the pelvis, as well as two views of the right hip were obtained demonstrating a three-part intertrochanteric hip fracture. The contralateral left hip demonstrates healed fixation with a sliding hip screw from a previous intertrochanteric hip fracture. 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 No fractures or dislocations are appreciated. IMPRESSION: Right intertrochanteric hip fracture. PLAN: Discussed with the patient in length her diagnosis. Discussed proceeding with similar fixation to her contralateral hip, but instead of a sliding hip screw, we will use an intramedullary device. She understands the risks include, but are not limited to, neurovascular injury, tendon injury, infection, failure of fixation, stiffness, persistent pain, all of which may require further intervention. The patient all questions answered. Consent was signed and placed in the chart. Her sister was also present in the room and had all questions answered. The patient has been consented for an open treatment of the right hip with intramedullary fixation. The surgery will be performed later this afternoon. Presumed hospitalization will be 2-3 days. The patient will likely require discharge to a rehabilitation versus jail facility following her discharge. She will be weightbearing as tolerated on that right lower extremity and I will have her start working with physical therapy for range of motion and gait training on postoperative day #1. I would like the case supervisor to look into [facility] where she is currently about to move to see if they have the capabilities for a skilled facility also at their facility.
--- NOTE | 2017-01-20 15:21 | NUR ---
Pain Patient continues to have some pain to the right hip this shift, kept within a tolerable level with ordered pain medications. CMS intact. Patient alert and oriented, awaiting surgery scheduled for this afternoon. Family currently at bedside. Hourly rounding continues.
--- NOTE | 2017-01-20 16:16 | NUR ---
Social Work: Initial Assessment/Multi-Disciplinary Rounds D: EMR reviewed. See initial assessment link for more information. Pt is a 81 y/o female admitted for R intratrocular fracture per H&P. SHEN met with pt and daughter (Modesta Quinn [phone]) at bedside to conduct initial assessment. Pt was alert and oriented x3. Pt's insurance is Medicare and and [employer]. PCP is Faith Garcia PA-C. Pt lives at home alone in [place]. Per rounds, pt to go to OR today at 1700 for fracture. Per rounds, pt likely to need SNF but MD will order once pt is out of OR. "Your Discharge Planning Checklist" provided. SW role explained and phone number written on white board. SW encouraged pt and family to contact SW for any discharge planning needs. Pt's capacity for self-care assessed - Pt states she is independent and fell at home - this is pt's second fall at home unwitnessed. Per pt's family, pt needs [facility] and is not safe to return home. SHEN discussed possible SNF but SW will await MD orders pending OR. SW to follow-up with pt's capacity for self-care. No report made on fall - no witnesses and pt is decisional. A: Pt who is independent at baseline and will likely need a SNF for PT/OT rehabilitation pending OR. P: Follow-up with MD regarding SNF orders. Follow-up with family regarding pt's safety at home. DUNG Song Addendum: 01/20/17 at 1623 by PATRICIA AGUILLON Amended: Links added.
[2017-01-20] MEDS ORDERED: Sodium Biphos-Phos 133 mL Enema RECTAL PRN (16:50)
[2017-01-20] MEDS ORDERED: HYDROcodone-APAP 5-325 mg Tablet PO PRN (16:50)
[2017-01-20] MEDS ORDERED: Magnesium Hydroxide 10 mL Oral Concentration PO PRN (16:50)
[2017-01-20] MEDS ORDERED: diphenhydrAMINE 25 mg Capsule PO PRN (16:50)
--- NOTE | 2017-01-20 17:04 | PCM.HPANE ---
Patient Data Surgeon Admitting Provider:Zuhair Majano MD Attending Provider:Miguel Vargas MD Primary Care Physician:Faith Garcia PA-C Other Provider: Reason for Visit R Intratrocular Fracture R INTRATROCULAR FRACTURE Ht/WT & BMI Height (Feet): 5 Height (Inches): 6.00 Weight (Kilograms): 76.900 Body Mass Index 27.25 Allergies Coded Allergies: levofloxacin (Verified Allergy, Mild, 11/05/16) pt cannot recall reaction, states "adverse". Pt states made pneumonia worse. Sulfa (Sulfonamide Antibiotics) (Verified Allergy, Unknown, 08/25/10) amoxicillin (Verified Allergy, Unknown, 01/20/17) erythromycin base (Verified Allergy, Unknown, 08/25/10) guaifenesin (Verified Allergy, Unknown, Shortness of Breath, 11/05/16) pt states she felt spasms, and warmth/heat all over risedronate sodium (Verified Adverse Reaction, Unknown, increased pain, 12/07/15) Past Anesthesia History Anesthesia History: Denies:: Anesthesia Reactions Diabetes History Hx Diabetes?: No MRSA MRSA: No Medications Blood Thinner: Aspirin Hypertension Medication: Yes Home Meds Incl Beta Alba: No Active Scripts Metoprolol Succinate ER 25 Mg Tab.er.[id number] Mg PO BID 30 Days Prov:More Rivera DO 11/10/16 Reported Medications Aspirin 325 Mg [id number] Mg PO HS #1 BOTTLE 01/20/17 Amiodarone 200 Mg [id number] Mg PO DAILY Ref 0 01/20/17 Discontinued Reported Medications Aspirin 81 Mg [id number] Mg PO DAILY Ref 0 01/20/17 Cartilage/Collagen/Bor/Hyalur (Joint Health Tablet)40 Mg-10 Mg-5 Mg-3.3 Mg Tablet1 Each PO DAILY 11/05/16 Calcium Carbonate (Calcium)600 Mg [id number] Mg PO DAILY 11/05/16 Ascorbate Calcium (Vitamin C)500 Mg [id number] Mg PO DAILY 11/05/16 Vit B Comp/C/FA/Iron/Vit E (Vitamin B Complex Tablet)1 Each Tablet1 Each PO DAILY 11/05/16 Discontinued Scripts Amoxicillin/Clav K 500-125 mg (Augmentin 500)1 Tab Tab1 Tablet PO Q8H 4 Days Prov:More Rivera DO 11/10/16 Amiodarone 200 Mg [id number] Mg PO BID 30 Days Prov:More Rivera DO 11/10/16 History History of ENT Problems?: Yes HEENT History: Positive for:: Cataracts (removed) Denies:: Dysphagia Glaucoma Sinus Problem Denture Type: None Teeth Condition: Within Normal Limits Hx of Heart Problems?: Yes Cardiovascular History: Positive for:: Edema Irregular Heartbeat (currently Afib, preceded by Vtach/SVT. EKG admission NSR ) Denies:: Cardiac Surgery Chest Pain Congestive Heart Failure Heart Murmur Hypertension Pacemaker Thrombophlebitis Hx of Respiratory Problem?: Yes Respiratory History: Positive for:: Dyspnea Pneumonia (2005, 2016) Denies:: Asthma COPD Chest Surgery Emphysema Hemoptysis Tuberculosis Hx Neurologic Problems?: No Hx of GI Problems?: No Hx of Problems?: Yes Genitourinary History: Positive for:: Urinary Tract Infection (years ago) Denies:: HX of Hemodialysis Kidney Stones HX of Peritoneal Dialysis: No Female Hx: Positive for:: Problems with Breasts? (breast ca hx) Denies:: Currently Endometriosis Pelvic Inflammatory Hx Musculoskeletal Problems?: Yes Musculoskeletal History: Positive for:: Musculoskeletal Trauma (left hip fx with rx, left shoulder fx ) Denies:: Back Injury Joint Replacement Hx of Psycho/Social Problems?: No Hx Surgeries?: Yes (left hip trauma surgery, mastectomy,) Hx Any Other Health Problems?: Yes Other History: Positive for:: Cancer (breast cancer) Hospitalization Denies:: Thyroid Disease History Blood Transfusions: Positive for:: Accept Blood Products? Denies:: Blood Transfuse Reaction Blood Transfusions Hx Diabetes: No Hx Alcohol Use: NoHx Substance Use: No Smoking Status: Never Smoker Have You Smoked inLast 12 mo: No Stop/Bang Treated for Sleep Apnea?: No Do You Have a CPAP Machine?: No S-Snoring: Do You Snore Loudly: No T-Tired: feel tired, fatigued: No O-Obsered: Observed not breath: No P-Blood Pressure: treated: Yes B- Body Mass Index > 35 kg/m2: No A- Age over 50: Yes N- Neck Large Circumference: No G- Gender Male: No LINDA Total Score: 1 LINDA Risk Assessment: Low Risk, <3 Yes Risk Assessment Category Category 1A: Patient has history of documented sleep apnea, and HAS NOT received any narcotic, sedative or anesthesia administration during this stay. Category 1B: Patient has history of documented sleep apnea, and HAS received any narcotic , sedative or anesthesia administration during this stay Category 2: Patient has SUSPECTED Obstructive Sleep Apnea, and HAS received any narcotic , sedative or anesthesia administration during this stay. Category 3: Patient has SUSPECTED Obstructive Sleep Apnea and HAS NOT received narcotic, sedative or anesthesia administration during this stay. Category 4: Outpatient in Procedural Areas with known sleep apnea or who screen positive for High Risk via the STOP/BANG questionnaire. Exam Exam Vital Signs Vital Signs Date Time Temp Pulse Resp B/P Pulse Ox O2 Delivery O2 Flow Rate FiO2 01/20/17 12:14 36.8 65 16 137/67 93 Room Air 01/20/17 11:31 66 General Appearance: Alert, Oriented X3, Cooperative HEENT/AIRWAY: MP 2, Neck Movement (Full), Mouth Opening Lungs: Clear to Auscultation, Normal Air Movement Heart: Regular Rate/Rhythm, Normal S1, Normal S2 Meds/Labs/Diagnostics Admission Meds Current Medications Sodium Chloride 1,000 ml @ 0 mls/hr Q0M ONCE IV Last administered on 22:51; Start 01/19/17 at 22:30; Stop 01/19/17 at 22:32; Status DC Sodium Chloride (Normal Saline) 1,000 ml @ 100 mls/hr Q10H IV Last administered on 01/20/17 11:24; Start 01/20/17 at 01:02 Amiodarone HCl (Cordarone) 200 mg DAILY PO Last administered on 01/20/17 11:05 ; Start 01/20/17 at 10:00 Metoprolol Succinate (Toprol XL) 12.5 mg BID PO Last administered on 01/20/17 11:04; Start 01/20/17 at 10:00 Labs Test 01/19/17 23:50 01/20/17 00:00 01/20/17 03:15 White Blood Count 8.0th/mm3 (3.8-10.1) Red Blood Count 4.25mil/mm3 (3.90-5.20) Hemoglobin 12.7g/dL (12.0-15.6) Hematocrit 38.8% (35.0-46.0) Mean Corpuscular Volume 91.3fL (81-100) Mean Corpuscular Hemoglobin 29.9pg (27.0-35.0) Mean Corpuscular Hemoglobin Concent 32.7% (32.0-37.0) Red Cell Distribution Width 15.5% (12.3-15.4) Platelet Count 189bil/L (150-400) Neutrophils (%) (Auto) 74.9% (40-74) Lymphocytes (%) (Auto) 14.1% (14-46) Monocytes (%) (Auto) 9.6% (4-12) Eosinophils (%) (Auto) 0.4% (0-5) Basophils (%) (Auto) 0.6% (0-3) Prothrombin Time 10.0sec (8.1-12.5) Prothromb Time International Ratio 0.94ratio Sodium Level 136mEq/L (134-144) Potassium Level 4.5mEq/L (3.5-5.2) Chloride Level 102mEq/L (97-108) Carbon Dioxide Level 18mmol/L (18-29) Blood Urea Nitrogen 16mg/dL (8-27) Creatinine 0.83mg/dL (0.57-1.00) Estimat Glomerular Filtration Rate 95mL/min (>59) Glucose Level 131mg/dL (60-99) Calcium Level 8.8mg/dL (8.5-10.1) Magnesium Level 2.1mg/dL (1.6-2.6) Total Bilirubin 0.4mg/dL (0.0-1.2) Aspartate Amino Transf (AST/SGOT) 25U/L (0-50) Alanine Aminotransferase (ALT/SGPT) 28U/L (0-32) Alkaline Phosphatase 78U/L (25-165) Troponin T 0.010ug/L (0.0-0.011) Total Protein 6.9g/dL (6.4-8.4) Albumin 3.8g/dL (3.4-5.0) Lipase 20U/L (13-60) Alcohols < 10mg/dL (0-10) Hold Rivera Top Tube Received (Received) Urine Color Yellow (YELLOW) Urine Appearance Clear (CLEAR,HAZY) Urine pH 6.0 (5.0-8.0) Urine Specific [place] 1.020 (1.003-1.035) Urine Protein Negativemg/dL (NEG,TRACE) Urine Glucose (UA) Negativemg/dL (NEGATIVE) Urine Ketones Tracemg/dL (NEGATIVE) Urine Occult Blood Negative (NEGATIVE) Urine Nitrite Negative (NEGATIVE) Urine Bilirubin Negative (NEGATIVE) Urine Urobilinogen Normalmg/dL (NORMAL) Urine Leukocyte Esterase Negative (NEGATIVE) Urine RBC 0-2/hpf (0-2) Urine WBC 0-5/hpf (0-5) Urine Epithelial Cells Few/hpf (NONE-MOD) Urine Crystals None seen (NONE SEEN) Urine Bacteria Few/hpf (NONE-FEW) Urine Hyaline Casts None/lpf (NONE) Urine Granular Casts None seen (NONE SEEN) Urine Waxy Casts None seen (NONE SEEN) Urine Red Blood Cell Casts None seen (NONE SEEN) Urine White Blood Cell Casts None seen (NONE SEEN) Urine Mucus None seen (None Seen) Urine Trichomonas None seen (NONE SEEN) Urine Yeast None (NONE SEEN) Urinalysis Comment None Plan Impression Patient chart reviewed, patient interviewed and anesthestic plan with risks, benefits, and alternatives discussed, and informed consent obtained. NPO per Anesth. Guidelines: Yes ASA Physical Status: ASA3 Severe Disease Anesthetic Plan: GA Bene/Risks/Altern/Consents: Yes HP Complete Prior to Induction: Yes Other Intermittent a. fib. Prescribed eloquis, states she did not ever start it. Previous hip facture done under GA, patient wishes to undergo the same anesthetic. Discussed benefits vs. risks of spinal/GA, wishes to proceed with GA. Олег Owen MD Jan 20, 2017 17:04
[2017-01-20] MEDS ORDERED: Dexamethasone 4 mg/mL Inj IVPUSH PRN (17:05)
[2017-01-20] MEDS ORDERED: Atropine 0.4 mg/mL Inj IVPUSH PRN (17:05)
[2017-01-20] MEDS ORDERED: Lactated Ringer's 1,000 ML IV SCH (17:05)
[2017-01-20] MEDS ORDERED: Labetalol 5 mg/mL 4 mL Inj IV PRN (17:05)
[2017-01-20] MEDS ORDERED: EPHEDrine Sulfate 50 mg/mL Inj IVPUSH PRN (17:05)
[2017-01-20] MEDS ORDERED: hydrALAZINE 20 mg/mL Inj IVPUSH PRN (17:05)
[2017-01-20] MEDS ORDERED: Phenylephrine 10,000 mCg/mL Inj IVPUSH PRN (17:05)
[2017-01-20] MEDS ORDERED: Lactated Ringer's 500 ML IV PRN (17:05)
[2017-01-20] MEDS ORDERED: MetoCLOpramide 5 mg/mL 2 mL Inj IVPUSH PRN (17:05)
[2017-01-20] MEDS ORDERED: Clindamycin 900 mg/50 mL D5W Premix IV ONE (17:20)
[2017-01-20] MEDS ORDERED: Lidocaine 1%-Epi 1:100,000 20 mL Inj INFILTRATE ONE (17:48)
[2017-01-20] MEDS ORDERED: Acetaminophen IV 1,000 MG in IV Premix 1 EACH IV SCH (18:00)
--- NOTE | 2017-01-20 18:17 | NUR ---
Procedure Pt. left for procedure at about 1630 from room 1017 [facility]. Pt. was given pain medication prior to leaving for procedure. Pt. not back at this time.
[2017-01-20] MEDS: fentaNYL-PF 50 mCg/mL 2 mL Inj IVPUSH PRN ×3 (19:20→19:45)
[2017-01-20] MEDS ORDERED: Lactated Ringer's 1,000 ML IV ONE (19:39)
--- NOTE | 2017-01-20 19:50 | PCM.ANEP1 ---
Post Anesthesia PACU Phase 1 Assessment Date of Service: Jan 20, 2017 Vital Signs Vital Signs Date Time Temp Pulse Resp B/P Pulse Ox O2 Delivery O2 Flow Rate FiO2 01/20/17 19:35 63 12 108/40 100 Simple Mask 10 01/20/17 19:30 63 13 118/47 100 Simple Mask 10 01/20/17 19:25 64 11 105/58 100 Simple Mask 10 01/20/17 19:20 65 14 132/50 100 Simple Mask 10 01/20/17 19:15 65 11 126/51 100 Simple Mask 10 01/20/17 19:10 36.9 68 10 133/54 100 Simple Mask 10 01/20/17 12:14 36.8 65 16 137/67 93 Room Air Anesthetic Administered: GA Level of Alertness: Sleepy, easy to arouse BERMUDEZ's with Equal Strength: Yes Pain: Yes Pain Scale Score: 6 Nausea or Vomiting: No CV Function & Hydration Stable: No Airway Device: Oxygen Delivery: Simple Mask Lungs: Normal Air Movement PACU Phase 2 Assessment Complications: No Follow up Care: N/A Patient Instructions Provided: N/A Олег Owen MD Jan 20, 2017 19:50
--- NOTE | 2017-01-20 20:15 | DRSVH ---
PROCEDURE: X-RAY PELVIS W/LAT HIP (RT) ([id number]) INDICATIONS: post op TECHNIQUE: AP pelvis with lateral view(s) of the right hip(s). COMPARISON: [facility], CR, XR FEMUR 1VW RT, 01/19/2017, 23:12. FINDINGS: Bones: Postsurgical changes compatible with ORIF of intertrochanteric/subtrochanteric right hip frac ture noted. Postsurgical changes compatible with remote ORIF of left hip fracture noted. There is a natomic alignment of the right hip fracture following ORIF. Lesser trochanter remains medially and p roximally displaced. Soft tissues: The visualized bowel gas pattern is normal. No suspicious soft tissue calcifications. IMPRESSION: Expected postsurgical change for ORIF of right hip fracture. Dictated by: Maria E Acuna MD, PhD on 01/20/2017 at 20:13 Approved by: Maria E Acuna MD, PhD on 01/20/2017 at 20:14
[2017-01-20] MEDS: Senna-Docusate 8.6-50 mg Tablet PO SCH (23:33)
[2017-01-21] VITALS (12 sets, daily range): BP systolic 88–110; BP diastolic 46–58; PULSE 58–75; RESP 15–19; O2SAT 93–98
[2017-01-21] MEDS: Sodium Chloride LOK Flush 10 mL Syringe IV SCH ×4 (00:30→20:24)
[2017-01-21 00:42] LABS: BASOPHILS % (AUTO) 0.1 % (0-3); EOSINOPHILS % (AUTO) 0 % (0-5); MONOCYTES % (AUTO) 4.9 % (4-12); Mean Corpuscular Hemoglobin 29.6 pg (27.0-35.0); Mean Corpuscular Volume 93.3 fL (81-100); NEUTROPHILS % (AUTO) 90.8 % (40-74); Platelet Count 134 bil/L (150-400)
--- NOTE | 2017-01-21 00:49 | NUR ---
Meds Held Pt arrived to [facility] floor from surgery at 2039. Evening metoprolol and asprin held per MD due to BP of 92/53, HR 58 at 2336. Previous BP was 133/71 and HR 69. CBC, BMP ordered stat and pending to check for bleeding. BP at 0030 was 102/49. NS running at 100, no complaints of pain, afebrile, no SOB, no CP, continue monitoring BP. Addendum: 01/21/17 at 0112 by MATT ESCALONA RN Labs back, notified of new values. States to closely monitor BP's. And to cookpage if continues to run low. Addendum: 01/21/17 at 0635 by MATT ESCALONA RN Preceptor kept night hospitalist updated of BP's throughout the night via cookpaging.
[2017-01-21] MEDS: Clindamycin Inj 600 MG in IV Premix 1 EACH IV SCH ×2 (01:59→07:53)
[2017-01-21] MEDS ORDERED: Acetaminophen IV 1,000 MG in IV Premix 1 EACH IV SCH (03:30)
[2017-01-21] MEDS: 0.9% Sodium Chloride 1,000 ML IV SCH ×2 (05:07→17:02)
[2017-01-21 05:27] LABS: BASOPHILS % (AUTO) 0 % (0-3); EOSINOPHILS % (AUTO) 0 % (0-5); MONOCYTES % (AUTO) 7.3 % (4-12); Mean Corpuscular Hemoglobin 29.4 pg (27.0-35.0); Mean Corpuscular Volume 93.5 fL (81-100); NEUTROPHILS % (AUTO) 86.6 % (40-74); Platelet Count 124 bil/L (150-400)
[2017-01-21] MEDS: MeTOProlol XL 25 mg ER24 Tablet PO SCH ×2 (07:53→20:30)
[2017-01-21] MEDS: Senna-Docusate 8.6-50 mg Tablet PO SCH ×2 (07:53→20:24)
--- NOTE | 2017-01-21 08:29 | PCM.PNORTH ---
Subjective Date of Service: Jan 21, 2017 Visit Information: Reason for Visit R Intratrocular Fracture Surgery/Surgery Date Post-Op Day # Date of Admission: Jan 20, 2017 at 01:38 Hospital Day # Subjective Found patient awake and alert this morning and sitting up in bed eating breakfast. She is pleasant and cognitively appropriate. No complaints of pain at this time. Patient's sister is in attendance at bedside. Discussed disposition on discharge. Patient indicates she was appearing to move to [facility] but this now may be an question considering her current condition. I have discussed with patient likely discharge on her before day 3 to nursing home facility depending on her mobility level at that time. I will also inform patient that social sciences research scientist would contact her as soon as possible while in the hospital to discuss disposition options. Postop General: No Complaints, No Shortness of Breath, No Chest Pain, Good Appetite Pain Management: PO, IV Push Objective Exam Objective Alert and oriented 3 and pleasant. Interoperative dressing is clean dry and intact Calf and thigh are soft and nontender Toe wiggle and sensation are intact at right lower extremity distally. Bahena is present and working Vital Signs and I/O Vital Sign - Last Date Time Temp Pulse Resp B/P Pulse Ox O2 Delivery O2 Flow Rate FiO2 01/21/17 06:00 36.3 59 17 104/56 96 Nasal Cannula 2.00 Intake and Output 01/20/17 01/20/17 01/21/17 Cumulative From/Thru 15:00 23:00 07:00 01/19/17 22:16 - 01/21/17 06:03 Intake Total 0 ml 1100 ml 1055 ml 2155 ml Output Total 500 ml 990 ml 500 ml 1990 ml Balance -500 ml 110 ml 555 ml 165 ml Intake Oral 0 ml 400 ml 400 ml IV Total 1100 ml 655 ml 1755 ml Output Urine Total 500 ml 690 ml 500 ml 1690 ml Estimated Blood Loss 300 ml 300 ml # Bowel Movements 0 0 Lab & Micro Results Laboratory Tests Test 01/21/17 00:20 01/21/17 04:54 White Blood Count 10.0th/mm3 (3.8-10.1) 7.8th/mm3 (3.8-10.1) Red Blood Count 3.41mil/mm3 (3.90-5.20) 3.23mil/mm3 (3.90-5.20) Hemoglobin 10.1g/dL (12.0-15.6) 9.5g/dL (12.0-15.6) Hematocrit 31.8% (35.0-46.0) 30.2% (35.0-46.0) Mean Corpuscular Volume 93.3fL (81-100) 93.5fL (81-100) Mean Corpuscular Hemoglobin 29.6pg (27.0-35.0) 29.4pg (27.0-35.0) Mean Corpuscular Hemoglobin Concent 31.8% (32.0-37.0) 31.5% (32.0-37.0) Red Cell Distribution Width 15.5% (12.3-15.4) 15.3% (12.3-15.4) Platelet Count 134bil/L (150-400) 124bil/L (150-400) Neutrophils (%) (Auto) 90.8% (40-74) 86.6% (40-74) Lymphocytes (%) (Auto) 4.1% (14-46) 5.8% (14-46) Monocytes (%) (Auto) 4.9% (4-12) 7.3% (4-12) Eosinophils (%) (Auto) 0% (0-5) 0% (0-5) Basophils (%) (Auto) 0.1% (0-3) 0% (0-3) Sodium Level 135mEq/L (134-144) 135mEq/L (134-144) Potassium Level 4.7mEq/L (3.5-5.2) 4.7mEq/L (3.5-5.2) Chloride Level 102mEq/L (97-108) 103mEq/L (97-108) Carbon Dioxide Level 21mmol/L (18-29) 20mmol/L (18-29) Blood Urea Nitrogen 17mg/dL (8-27) 18mg/dL (8-27) Creatinine 0.68mg/dL (0.57-1.00) 0.63mg/dL (0.57-1.00) Estimat Glomerular Filtration Rate 119mL/min (>59) 130mL/min (>59) Glucose Level 171mg/dL (60-99) 176mg/dL (60-99) Calcium Level 8.2mg/dL (8.5-10.1) 8.1mg/dL (8.5-10.1) Result Diagram: 01/21/17 0454 01/21/17 0454 General Appearance: Alert, Oriented X3, Cooperative, No Acute Distress Extremities: No Compartment Syndrom Noted, Thigh & Calf Soft/Nontender Postop Sensory Motor: Distal Motor Intact, Movement in Toes, Distal Sensation Intact Activity: Activity per PT, Ambulate with PT (weightbearing as tolerated on the right lower extremity using front wheeled walker) Catheters: Urethral 2 Way Bahena (Bahena will discontinue after first PT session. ) Assessment & Plan Impression Patient is an 81-year-old female whom is well alert and oriented and communicative and appears very well this morning. She is postop day 1 from a right hip long nail performed on 01/20/[address] Joseph Manning. Patient was planning to move to [facility] and will need social sciences research scientist consult for disposition planning on discharge. Patient's sister is in attendance at bedside. Problems: Plan Postop day #1 from right hip long nail placed on 01/20/[address] Joseph Manning. Weight-bear as tolerated on the right lower extremity using front-wheeled walker. Continue formal physical therapy for mobility, gait and safety. Continue pain medication as needed moving to by mouth pain medication as soon as possible. Continue Lovenox 40 mg subcutaneous daily 28 days postop. Change right hip dressing on postop day 2. Keep right hip dressings clean, dry and intact and change as needed. Nursing please begin to move patient to by mouth pain medication as soon as possible. Call if you need something that has not been ordered. Nursing please fit patient with bilateral thigh-high JOE hose as ordered today. Right may be fit on postop day 2 after dressing change Nursing please fit LLE SCD only. Nursing please discontinue Bahena after first PT session. Patient may use BSC if this will facilitate mobility and safety. Social service please consult with patient regarding preinjury plans for moving to [facility] facility and assist in formulating new disposition plans as needed. Follow-up in 2 weeks at [facility] orthopedic clinic with Dr. Joseph Manning for wound check and staple removal. Follow-up in 6 weeks at [facility] orthopedic clinic with Dr. Joseph Manning with right two-view femur x-rays on arrival Anticipate discharge to nursing home facility by hospitalist service on postop day #3, 01/23/2017. VTE Prophylaxis: Sub-Q Enoxaparin (Lovenox 40 mg subcutaneous daily 28 days postop for DVT prophylaxis), SCDs (left lower extremity SCD only), JOE Hose ( bilateral thigh-high JOE hose. Right may be fitted tomorrow after dressing change.) Resuscitation Status: DNR/DNI:Do Not Resuscitate/Intubate Juarez oTrrez PA-C Jan 21, 2017 08:29
--- NOTE | 2017-01-21 08:34 | PCM.PNMED ---
Subjective Date of Service Jan 21, 2017 Subjective Patient seen and examined. Does not complain of pain. Eating breakfast. Vitals stable. Exam Vital Signs Vital Sign - Last Date Time Temp Pulse Resp B/P Pulse Ox O2 Delivery O2 Flow Rate FiO2 01/21/17 06:00 36.3 59 17 104/56 96 Nasal Cannula 2.00 Intake and Output 01/20/17 01/20/17 01/21/17 Cumulative From/Thru 15:00 23:00 07:00 01/19/17 22:16 - 01/21/17 06:03 Intake Total 0 ml 1100 ml 1055 ml 2155 ml Output Total 500 ml 990 ml 500 ml 1990 ml Balance -500 ml 110 ml 555 ml 165 ml Intake Oral 0 ml 400 ml 400 ml IV Total 1100 ml 655 ml 1755 ml Output Urine Total 500 ml 690 ml 500 ml 1690 ml Estimated Blood Loss 300 ml 300 ml # Bowel Movements 0 0 Exam General: Alert, Oriented X3, Cooperative, No acute Distress Chest & Lungs: Clear to auscultation & percussion, No adventitious breath sounds, no crackles, no wheeze Cardiovascular: Normal S1, Normal S2, No Murmurs/Rubs/Gallops, irregularly irregular ( afib) Pulses: Radial (present and equal), Dorsalis Pedi (present and equal) Abdomen: Soft, Non-tender, Non-distended, Normoactive bowel tones. Musculoskeletal: Limited right hip mobility, Dressings in place, no signs of acute inflammation Lab and Diagnostics Result Diagram: 01/21/17 0454 01/21/17 0454 Assessment & Plan Vaishali Heart is a 81 year old female with Chronic Atrial Fibrillation on anticoagulations, breast Cancer who presents to [facility] emergency department via EMS found to have right hip fractures # Acute right Hip fracture. Present on admission Secondary to mechanical fall. No syncope noted. Patient is an acceptable candidate for surgery. She has no increased cardiovascular risk. She has excellent exercise tolerance and I do not recommend any further cardiac testing. Only concern is a Stroke given her CHADS 2 score and will need to be closely monitored - Post op day #1 - pain control with Dilaudid and oral oxycodone, bowel regimen - Physical therapy assessment for placement - on Lovenox for DVT prophylaxis # Orthostatic hypotension - likely due to dehydration and blood loss - soft abdomen, no signs of bleeding or hematoma - will start fluids on her, monitor her, and if continue to be orthostatic, will work it up # Chronic Atrial Fibrillation Recent diagnosis this year. Patient refused Eliquis recommended by Dr Vázquez but is on Aspirin - monitor on telemetry - continue Aspirin for anticoagulations - continue Amiodarone and Metoprolol for rate control # History of Breast Cancer. in remission - Acetaminophen as needed for mild pain/fever/headache - Bowel regimen as needed - Antiemetic as needed Patient admitted under inpatient status with expected length of stay > 2 midnights for severity of present symptoms, complexities of treatment plan and risk for adverse event . VTE Mechanical Devices: Intermittant Pneumatic CD Resuscitation Status: DNR/DNI:Do Not Resuscitate/Intubate Time spent 35 mins Miguel Vargas MD Jan 21, 2017 08:34
[2017-01-21] MEDS: Acetaminophen IV 1,000 MG in IV Premix 1 EACH IV SCH ×2 (11:16→17:10)
--- NOTE | 2017-01-21 12:00 | NUR ---
Evaluation completed. Please go to "Notes" then click on "Assessments and Notes" (bottom left corner of screen). Then select appropriate discipline tab on top of screen.
--- NOTE | 2017-01-21 13:48 | NUR ---
Bahena DC'd Bahena catheter DC'd at 1344 without issue. Patient did request oxycodone prior to ambulating to [facility]. Pain medication given. BSC at bedside. Patient instructed to use call light prior to getting out of bed. Addendum: 01/21/17 at 1844 by JARAD SANTA RN Patient able to void spontaneously in BSC.
--- NOTE | 2017-01-21 16:28 | NUR ---
Social Work- Multidisciplinary Rounds Pt discussed in rounds. Pt will likely need SNF at discharge. SW unable to see pt today due to high census. SW will continue to follow. DUNG Worthington
--- NOTE | 2017-01-21 16:57 | NUR ---
BP Patient orthostatic when up to BSC. BP dropped to 88/46. Back up to 105/56. MD aware. Staying bedrest for safety.
[2017-01-22] VITALS (8 sets, daily range): BP systolic 98–150; BP diastolic 72–80; PULSE 65–90; RESP 16–19; O2SAT 94–99
[2017-01-22] MEDS: 0.9% Sodium Chloride 1,000 ML IV SCH ×3 (03:02→23:02)
[2017-01-22 06:17] LABS: BASOPHILS % (AUTO) 0.1 % (0-3); EOSINOPHILS % (AUTO) 0.3 % (0-5); MONOCYTES % (AUTO) 13.2 % (4-12); Mean Corpuscular Hemoglobin 29.1 pg (27.0-35.0); Mean Corpuscular Volume 93.3 fL (81-100); NEUTROPHILS % (AUTO) 73.1 % (40-74); Platelet Count 133 bil/L (150-400)
--- NOTE | 2017-01-22 06:40 | NUR ---
brisk UOP, clear yellow. Taking PO fluids without nausea. IV SL'd. Evening B/p 106/55 - Metoprolol held. Morning B/p now 117/78. Tele; remains sinus with HR 70's.
--- NOTE | 2017-01-22 06:44 | NUR ---
Joe hose Applied to left leg / SCD's on. Right leg JOE stocking to be applied after today's dressing change.
--- NOTE | 2017-01-22 08:01 | PCM.PNMED ---
Subjective Date of Service Jan 22, 2017 Subjective Patient seen and examined today. Says didnt have a bowel movement for 2 days. Denies discomfort, has been passing gas. Vitals noted' Exam Vital Signs Vital Sign - Last Date Time Temp Pulse Resp B/P Pulse Ox O2 Delivery O2 Flow Rate FiO2 01/22/17 06:44 36.8 88 16 117/78 97 Room Air 01/21/17 08:57 1.00 Intake and Output 01/21/17 01/21/17 01/22/17 Cumulative From/Thru 15:00 23:00 07:00 01/19/17 22:16 - 01/22/17 06:51 Intake Total 2492 ml 1448 ml 6095 ml Output Total 900 ml 2100 ml 4990 ml Balance 1592 ml -652 ml 1105 ml Intake Oral 1658 ml 850 ml 2908 ml IV Total 834 ml 598 ml 3187 ml Output Urine Total 900 ml 2100 ml 4690 ml Estimated Blood Loss 300 ml # Bowel Movements 0 0 0 Exam General: Alert, Oriented X3, Cooperative, No acute Distress Chest & Lungs: Clear to auscultation & percussion, No adventitious breath sounds, no crackles, no wheeze Cardiovascular: Normal S1, Normal S2, No Murmurs/Rubs/Gallops, irregularly irregular ( afib) Pulses: Radial (present and equal), Dorsalis Pedi (present and equal) Abdomen: Soft, Non-tender, Non-distended, Normoactive bowel tones. Musculoskeletal: Limited right hip mobility, Dressings in place, no signs of acute inflammation Lab and Diagnostics Result Diagram: 01/22/17 0554 01/22/17 0554 Assessment & Plan Vaishali Heart is a 81 year old female with Chronic Atrial Fibrillation on anticoagulations, breast Cancer who presents to [facility] emergency department via EMS found to have right hip fractures # Acute right Hip fracture. Present on admission Secondary to mechanical fall. No syncope noted. Patient is an acceptable candidate for surgery. She has no increased cardiovascular risk. She has excellent exercise tolerance and I do not recommend any further cardiac testing. Only concern is a Stroke given her CHADS 2 score and will need to be closely monitored - Post op day #2 - pain control with oral oxycodone, bowel regimen - Physical therapy - on Lovenox for DVT prophylaxis #Acute normocytic anemia likely 2/2 operative blood loss - Hgb has trended down - no signs of active bleeding, no signs of hematoma, or abdominal distension - will continue to trend Hgb, transfuse if <8.0 # Orthostatic hypotension - likely due to dehydration and blood loss - soft abdomen, no signs of bleeding or hematoma - will start fluids on her, monitor her, and if continue to be orthostatic, will work it up # Chronic Atrial Fibrillation Recent diagnosis this year. Patient refused Eliquis recommended by Dr Vázquez but is on Aspirin - monitor on telemetry - continue Aspirin for anticoagulations - continue Amiodarone and Metoprolol for rate control # History of Breast Cancer. in remission - Acetaminophen as needed for mild pain/fever/headache - Bowel regimen as needed - Antiemetic as needed Patient admitted under inpatient status with expected length of stay > 2 midnights for severity of present symptoms, complexities of treatment plan and risk for adverse event . VTE Prophylaxis: Sub-Q Enoxaparin (Lovenox 40 mg subcutaneous daily 28 days postop for DVT prophylaxis), SCDs (left lower extremity SCD only), JOE Hose ( bilateral thigh-high JOE hose. Right may be fitted tomorrow after dressing change.) VTE Mechanical Devices: Intermittant Pneumatic CD Resuscitation Status: DNR/DNI:Do Not Resuscitate/Intubate Time spent 35 mins Miguel Vargas MD Jan 22, 2017 08:01
[2017-01-22] MEDS: MeTOProlol XL 25 mg ER24 Tablet PO SCH ×2 (08:30→20:30)
--- NOTE | 2017-01-22 08:39 | PCM.PNORTH ---
Subjective Date of Service: Jan 22, 2017 Visit Information: Reason for Visit R Intratrocular Fracture Surgery/Surgery Date Post-Op Day # Date of Admission: Jan 20, 2017 at 01:38 Hospital Day # Subjective Found patient awake and alert this morning and sitting up in bed eating breakfast. No complaints of pain at this time. Patient indicates she has participated with formal physical therapy yesterday for just a few steps. Patient agrees that she will participate again today with formal therapy to increase her mobility. Postop General: No Complaints, No Shortness of Breath, No Chest Pain, Good Appetite Pain Management: PO Objective Exam Objective Alert and oriented 3 and pleasant. Interoperative dressing is clean dry and intact. Interoperative dressing is changed to postoperative dressing this morning and wounds are found to be in good condition. Bahena catheter is absent. Bilateral SCDs are in place. Left JOE hose is in place Gait 2 feet on 01/21/2017 with physical therapy. Recommendation for discharge to longterm facility at this time. Vital Signs and I/O Vital Sign - Last Date Time Temp Pulse Resp B/P Pulse Ox O2 Delivery O2 Flow Rate FiO2 01/22/17 06:44 36.8 88 16 117/78 97 Room Air 01/21/17 08:57 1.00 Intake and Output 01/21/17 01/21/17 01/22/17 Cumulative From/Thru 15:00 23:00 07:00 01/19/17 22:16 - 01/22/17 06:51 Intake Total 2492 ml 1448 ml 6095 ml Output Total 900 ml 2100 ml 4990 ml Balance 1592 ml -652 ml 1105 ml Intake Oral 1658 ml 850 ml 2908 ml IV Total 834 ml 598 ml 3187 ml Output Urine Total 900 ml 2100 ml 4690 ml Estimated Blood Loss 300 ml # Bowel Movements 0 0 0 Lab & Micro Results Laboratory Tests Test 01/22/17 05:54 White Blood Count 9.4th/mm3 (3.8-10.1) Red Blood Count 2.99mil/mm3 (3.90-5.20) Hemoglobin 8.7g/dL (12.0-15.6) Hematocrit 27.9% (35.0-46.0) Mean Corpuscular Volume 93.3fL (81-100) Mean Corpuscular Hemoglobin 29.1pg (27.0-35.0) Mean Corpuscular Hemoglobin Concent 31.2% (32.0-37.0) Red Cell Distribution Width 15.3% (12.3-15.4) Platelet Count 133bil/L (150-400) Neutrophils (%) (Auto) 73.1% (40-74) Lymphocytes (%) (Auto) 12.8% (14-46) Monocytes (%) (Auto) 13.2% (4-12) Eosinophils (%) (Auto) 0.3% (0-5) Basophils (%) (Auto) 0.1% (0-3) Sodium Level 136mEq/L (134-144) Potassium Level 5.0mEq/L (3.5-5.2) Chloride Level 104mEq/L (97-108) Carbon Dioxide Level 22mmol/L (18-29) Blood Urea Nitrogen 18mg/dL (8-27) Creatinine 0.76mg/dL (0.57-1.00) Estimat Glomerular Filtration Rate 105mL/min (>59) Glucose Level 124mg/dL (60-99) Calcium Level 8.1mg/dL (8.5-10.1) Result Diagram: 01/22/1754 01/22/1754 General Appearance: Alert, Oriented X3, Cooperative, No Acute Distress Extremities: No Compartment Syndrom Noted, Thigh & Calf Soft/Nontender Postop Sensory Motor: Movement in Toes, Distal Sensation Intact Activity: Activity per PT, Ambulate with PT (weightbearing as tolerated on the right lower extremity using front wheeled walker) Catheters: None Assessment & Plan Plan Postop day #2 from right hip long nail placed on 01/20/[address] Joseph Manning. Weight-bear as tolerated on the right lower extremity using front-wheeled walker. Continue formal physical therapy for mobility, gait and safety. Continue by mouth pain medication only as needed. Continue Lovenox 40 mg subcutaneous daily 28 days postop. Right hip interoperative dressing is changed postoperative dressing this morning and wounds are found to be in good condition. Keep right hip dressings clean, dry and intact and change dressing daily while in house. Nursing please fit patient with right thigh-high JOE hose today. Patient may use BSC if this will facilitate mobility and safety. Social service please consult with patient regarding preinjury plans for moving to [facility] and assist in formulating new disposition plans as needed with likely discharge to longterm facility on or about postop day #3. Hospitalist may consider DC chronic home med ASA 325 to avoid excessive anticoagulation if feels this is advisable. Follow-up in 2 weeks at [facility] orthopedic clinic with Dr. Joseph Manning for wound check and staple removal. Follow-up in 6 weeks at [facility] orthopedic clinic with Dr. Joseph Manning with right two-view femur x-rays on arrival Orthopedics thanks hospitalist service for their help in the medical management of this patient. Orthopedics will likely sign off on this patient tomorrow on 01/23/2017. Anticipate discharge to longterm facility by hospitalist service on postop day #3, 01/23/2017 or when determined to be medically stable to do so. VTE Prophylaxis: Sub-Q Enoxaparin (Lovenox 40 mg subcutaneous daily 28 days postop for DVT prophylaxis), SCDs (left lower extremity SCD only), JOE Hose ( bilateral thigh-high JOE hose. Nursing please fit right JOE hose today on 01/22.) Resuscitation Status: DNR/DNI:Do Not Resuscitate/Intubate Juarez Torrez PA-C Jan 22, 2017 08:39
--- NOTE | 2017-01-22 09:11 | NUR ---
DARIN signed by pt Zainab Fish WASTEWATER ANALYST LAB ANALYST
[2017-01-22] MEDS: Sodium Chloride LOK Flush 10 mL Syringe IV SCH ×2 (09:21→17:29)
[2017-01-22] MEDS: Senna-Docusate 8.6-50 mg Tablet PO SCH ×2 (09:21→20:30)
--- NOTE | 2017-01-22 13:58 | NUR ---
Social Work- Continued D/C Planning/Multidisciplinary Rounds Data: EMR reviewed. Pt is on day 2 of hospitalization for R hip fracture per H&P. SW followed up with pt regarding SNF placement. Per rounds, pt is likely to discharge tomorrow to SNF. T/C from Michael at [facility]. Pt has been accepted at [facility] with Brian to follow. SHEN met with pt at bedside regarding this information. Pt would like referrals to [facility] and [facility] since she is moving to [place]. SW informed pt that [facility] does not provide transportation from the hospital and pt would have to pay. This makes [facility] her 3rd choice. T/C to Peri at [facility] regarding referral. Faxed clinicals and facesheet. Peri confirms that they do not have transportation and that the cost of this is a concern for pt. She is reviewing referral. T/C to Adina at [facility] regarding referral. Facesheet faxed and access given. Adina is reviewing referral. Assessment: Pt for whom SNF is medically necessary Plan: Referrals to [facility] and [facility]. Pt is accepted at [facility] with Brian to follow. Paperwork in chart and PASRR in folder. SW will continue to follow. DUNG Worthington Addendum: 01/22/17 at 1537 by LORENZA COLLIER SS Pt informed DUNG that her first choice is [facility]. SHEN will notify other facilities of this. DUNG Worthington
--- NOTE | 2017-01-22 14:10 | OP ---
[address] [address] OPERATIVE REPORT PATIENT: TRACI CH : 1935 MR#: [id number] ADMIT: 01/20/2017 JOB ID: [id number] DATE OF SURGERY: 01/20/2017 PREOPERATIVE DIAGNOSIS(ES): Right intertrochanteric hip fracture. POSTOPERATIVE DIAGNOSIS(ES): Right intertrochanteric hip fracture. PROCEDURE: Intramedullary fixation of her right intertrochanteric hip fracture. SURGEON: Joseph Manning D.O. ANESTHESIA: General. HISTORY: The patient is a pleasant, 81-year-old female that presented to me after falling at home. She landed onto her right side and was unable to further ambulate onto the ER right lower extremity. She was in the process of getting things together to move to an assisted living facility. Upon presentation to the hospital, it was identified that she demonstrated intertrochanteric hip fracture. Orthopedics was consulted for further evaluation and treatment. The patient had a similar injury to her contralateral hip several years ago and was treated with a sliding hip screw. I discussed with the patient the risks, benefits, and indications to proceed with intramedullary fixation of the right hip. She understood the risks include, but are not limited to neurovascular injury, tendon injury, infection, failure of fixation, stiffness, persistent pain, all of which may require further intervention. The patient had all questions answered. Consent was signed and placed in chart. PROCEDURE IN DETAIL: The patient was brought to the operative suite and placed supine on the operative table. Surgical time-out was then performed. Everyone was in agreement. After appropriate anesthesia was obtained, the right lower leg was placed into the fracture boot with traction applied to the right lower extremity. The contralateral leg was placed into a well leg cota in and abducted and externally rotated position. Fracture reduction was verified under fluoroscopy and the right hip was then prepped and draped in sterile fashion. A 4 cm longitudinal incision was made just proximal to the greater trochanter. Dissection was carried down to the tip of the greater trochanter and a starting guidewire then placed across the tip of the trochanter down the proximal femur. AP and lateral projections were utilized to verify appropriate placement of the wire with a planned Synthes TFNA nail. Next, after demonstrating appropriate position of the wire, the wire was over-reamed with the starting reamer and ball-tipped wire was then passed down to the distal femoral physeal scar. The correct measurement off of the wire was made for the nail. The wire was then sequentially reamed to 12.5 for an 11 mm nail. Next, the Synthes 11 mm TFNA nail was advanced overlying the wire and the wire then removed. The nail was advanced to the appropriate position to get a center-center position for the lag screw. The lateral incision was then made for the planned lag screw. Guidewire was inserted and placed through the guide to a center-center position of the femoral head. This was verified with multiple views on fluoroscopy. This was then over-reamed and a lag screw then advanced overlying the wire. Excellent purchase was obtained with the lag screw within the head. The screw was then locked and the outrigger then removed. Attention was then turned towards the distal locking screw. A single distal locking screw was placed utilizing perfect [place] technique. The screw was inserted through the oblong hole within the nail in a static locking fashion. Final radiographs were obtained. Both AP and lateral projections both proximal and distal of the nail. Excellent fixation was achieved. Appropriate lengths of the screws were well identified. The operative sites were copiously irrigated. The deep fascia closed with 0-Vicryl, followed by 2-0 Vicryl for subcutaneous tissues, and brennan for the skin. Bulky dressings were then applied. ESTIMATED BLOOD LOSS: 300 cc. COMPLICATIONS: None. DISPOSITION: The patient tolerated the procedure well. Anesthesia was reversed and patient was transferred back to recovery. IMPLANT: A Synthes TFNA nail with one distal static locking screw and 110 mm lag screw. POSTOPERATIVE PLAN: The patient will be admitted back to the floor. Presumed hospitalization will be 2-3 days and she will likely be [facility] a jail facility. She is weightbearing as tolerated with a walker. Followup in the office will be in two weeks.
--- NOTE | 2017-01-22 18:03 | NUR ---
Pain Mgmt/Constipation Talked with patient about pain management and her constipation. Patient has not had a bowel movement since admission and states she is worried about it. Patient does report passing flatus. Talked with her about her PRN medications she has ordered and other methods to help relieve constipation such as prune juice. Patient agreed to try milk of mag tonight after dinner. Also educated patient on her constipation possibly being related to a decrease in mobility and pain medication use. Talked with patient about possibly using ordered Motrin instead of Oxycodone if her pain can be managed that way. Patient verbalized understanding and agreed to take Motrin tonight and see how her pain does with that.
--- NOTE | 2017-01-22 20:34 | NUR ---
GI; dulcolax suppos. given. Some firm stool felt near opening of rectum. Addendum: 01/22/17 at 2219 by EDYTA GAO RN and hemorroid felt.
--- NOTE | 2017-01-22 22:19 | NUR ---
GI; Pt insisted needed to get up to bsc. Up to bsc with 2 assist. Staff remained in room with pt. Pt states no dizziness felt. Had many hard stools, large amount total. Addendum: 01/22/17 at 2224 by EDYTA GAO RN FLeets enema had been given.
[2017-01-23 00:52] VITALS: BP 138/70; PULSE 91; RESP 20; O2SAT 94
[2017-01-23] MEDS: Sodium Chloride LOK Flush 10 mL Syringe IV SCH ×2 (01:53→10:01)
[2017-01-23 05:42] VITALS: BP 137/76; PULSE 90; RESP 18; O2SAT 95
--- NOTE | 2017-01-23 06:14 | PCM.PNORTH ---
Subjective Date of Service: Jan 23, 2017 Visit Information: Reason for Visit R Intratrocular Fracture Surgery/Surgery Date Post-Op Day # Date of Admission: Jan 20, 2017 at 01:38 Hospital Day # Subjective Found patient awake and alert and sitting up in bed. No complaints of pain at this time. Patient does relate that she had a large bowel movement last night which has made her much more comfortable. Discussed orthopedics I off this morning and likely discharge to senior care facility and patient is aware and in favor of this. She [facility] selected [facility] and social media specialist is working on this for her. Patient has not achieved any significant gait as of this time and I have discussed with her that [email or web address] is a good place to work on that prior to going to her independent living facility at [facility] that she had planned on prior to this injury. Postop General: No Complaints, No Shortness of Breath, No Chest Pain, Good Appetite Pain Management: PO Objective Exam Objective Alert and oriented 3 and pleasant. Postoperative dressings are intact and lightly soiled. Calf and thigh are soft and nontender Toe we will and sensation are intact at right lower extremity distally Bahena is absent Bilateral JOE hose are in place. Left lower extremity SCD is in place No gait with physical therapy on 01/22/2017. Vital Signs and I/O Vital Sign - Last Date Time Temp Pulse Resp B/P Pulse Ox O2 Delivery O2 Flow Rate FiO2 01/23/17 05:42 37.0 90 18 137/76 95 Nasal Cannula 2.00 Intake and Output 01/22/17 01/22/17 01/23/17 Cumulative From/Thru 15:00 23:00 07:00 01/19/17 22:16 - 01/23/17 05:42 Intake Total 1615 ml 800 ml 8510 ml Output Total 1000 ml 1250 ml 7240 ml Balance 615 ml -450 ml 1270 ml Intake Oral 1615 ml 800 ml 5323 ml IV Total 3187 ml Output Urine Total 1000 ml 1250 ml 6940 ml Estimated Blood Loss 300 ml # Bowel Movements 2 2 Lab & Micro Results Laboratory Tests Test 01/22/17 14:30 Hemoglobin 9.0g/dL (12.0-15.6) Hematocrit 28.1% (35.0-46.0) Result Diagram: 01/22/17 1430 01/22/17 0554 General Appearance: Alert, Oriented X3, Cooperative, No Acute Distress Extremities: No Compartment Syndrom Noted, Thigh & Calf Soft/Nontender Postop Sensory Motor: Distal Motor Intact, Movement in Toes, Distal Sensation Intact Activity: Activity per PT, Ambulate with PT (weightbearing as tolerated on the right lower extremity using front wheeled walker) Catheters: None Assessment & Plan Impression Patient is a pleasant 81-year-old female who has not achieve significant gait while in the hospital but I believe she will over time recover well. She plans to go to [facility] from here and then will ideally move on to [facility] independent living which she had planned on prior to this recent injury. Problems: Plan Postop day #3 from right hip long nail placed on 01/20/[address] Joseph Manning. Weight-bear as tolerated on the right lower extremity using front-wheeled walker. Continue formal physical therapy for mobility, gait and safety. Continue by mouth pain medication only as needed. Continue Lovenox 40 mg subcutaneous daily 28 days postop. Postoperative dressings are intact and lightly soiled. Keep right hip dressings clean, dry and intact and change dressing daily while in house. Nursing please change right hip dressing daily prior to discharge. Follow-up in 2 weeks at [facility] orthopedic clinic with Dr. Joseph Manning for wound check and staple removal. Follow-up in 6 weeks at [facility] orthopedic clinic with Dr. Joseph Manning with right two-view femur x-rays on arrival Orthopedics thanks hospitalist service for their help in the medical management of this patient. Orthopedics will sign off at this time but as always we will remain available for consultation and treatment as needed. Anticipate discharge to senior care facility by hospitalist service on postop day #3, 01/23/2017 or when determined to be medically stable to do so. VTE Prophylaxis: Sub-Q Enoxaparin (Lovenox 40 mg subcutaneous daily 28 days postop for DVT prophylaxis), SCDs (left lower extremity SCD only), JOE Hose ( bilateral thigh-high JOE hose.) Resuscitation Status: DNR/DNI:Do Not Resuscitate/Intubate Juarez Torrez PA-C Jan 23, 2017 06:14 Juarez Torrez PA-C Jan 23, 2017 06:14
--- NOTE | 2017-01-23 08:02 | PCM.PNMED ---
Subjective Date of Service Jan 23, 2017 Subjective Patient seen and examined today. She says she feels better today. Had bowel movement. Vitals stable. Exam Vital Signs Vital Sign - Last Date Time Temp Pulse Resp B/P Pulse Ox O2 Delivery O2 Flow Rate FiO2 01/23/17 05:42 37.0 90 18 137/76 95 Nasal Cannula 2.00 Intake and Output 01/22/17 01/22/17 01/23/17 Cumulative From/Thru 15:00 23:00 07:00 01/19/17 22:16 - 01/23/17 05:42 Intake Total 1615 ml 800 ml 8510 ml Output Total 1000 ml 1250 ml 7240 ml Balance 615 ml -450 ml 1270 ml Intake Oral 1615 ml 800 ml 5323 ml IV Total 3187 ml Output Urine Total 1000 ml 1250 ml 6940 ml Estimated Blood Loss 300 ml # Bowel Movements 2 2 Exam General: Alert, Oriented X3, Cooperative, No acute Distress Chest & Lungs: Clear to auscultation & percussion, No adventitious breath sounds, no crackles, no wheeze Cardiovascular: Normal S1, Normal S2, No Murmurs/Rubs/Gallops, irregularly irregular ( afib) Pulses: Radial (present and equal), Dorsalis Pedi (present and equal) Abdomen: Soft, Non-tender, Non-distended, Normoactive bowel tones. Musculoskeletal: Limited right hip mobility, Dressings in place, no signs of acute inflammation Lab and Diagnostics Result Diagram: 01/22/17 1430 01/22/17 0554 Assessment & Plan Vaishali Heart is a 81 year old female with Chronic Atrial Fibrillation on anticoagulations, breast Cancer who presents to [facility] emergency department via EMS found to have right hip fractures # Acute right Hip fracture. Present on admission Secondary to mechanical fall. No syncope noted. Patient is an acceptable candidate for surgery. She has no increased cardiovascular risk. She has excellent exercise tolerance and I do not recommend any further cardiac testing. Only concern is a Stroke given her CHADS 2 score and will need to be closely monitored - Post op day #3 - pain control with oral oxycodone, bowel regimen - Physical therapy - on Lovenox for DVT prophylaxis #Acute normocytic anemia likely 2/2 operative blood loss, resolved - Hgb has normalized - no signs of active bleeding, no signs of hematoma, or abdominal distension - will continue to trend Hgb, transfuse if <8.0 # Orthostatic hypotension, resolved - likely due to dehydration and blood loss - soft abdomen, no signs of bleeding or hematoma # Chronic Atrial Fibrillation Recent diagnosis this year. Patient refused Eliquis recommended by Dr Vázquez but is on Aspirin - monitor on telemetry - continue Aspirin after lovenox for antiplatelet therapy - continue Amiodarone and Metoprolol for rate control # History of Breast Cancer. in remission - Acetaminophen as needed for mild pain/fever/headache - Bowel regimen as needed - Antiemetic as needed Dispo: Patient ready to be discharged to SNF. . Pain Evaluation: Adequate Pain Control VTE Prophylaxis: Sub-Q Enoxaparin (Lovenox 40 mg subcutaneous daily 28 days postop for DVT prophylaxis), SCDs (left lower extremity SCD only), JOE Hose ( bilateral thigh-high JOE hose.) VTE Mechanical Devices: Intermittant Pneumatic CD Resuscitation Status: DNR/DNI:Do Not Resuscitate/Intubate Time spent 35 mins Miguel Vargas MD Jan 23, 2017 08:02 Miguel Vargas MD Jan 23, 2017 08:02
[2017-01-23 08:15] VITALS: BP 123/66; PULSE 86; RESP 18; O2SAT 92
[2017-01-23] MEDS: Senna-Docusate 8.6-50 mg Tablet PO SCH (08:30)
--- NOTE | 2017-01-23 09:56 | PCM.DIMED ---
Discharge Instructions Date of Service Jan 23, 2017 Dates of Hospitalization Jan 20, 2017 at 01:38 Discharge Diagnosis Discharge Diagnosis Hip fracture Medication Instructions Additional med instructions On lovenox subq, continue aspirin after 25 days. Diet Discharge Diet: No restrictions Activity Discharge Activity: Other (as per PT recs) Call your provider Call your provider for: Fever or Chills, Chest pain, Excessive diarrhea Patient Instructions Patient Instructions Weight-bear as tolerated on the right lower extremity using front-wheeled walker. Continue formal physical therapy for mobility, gait and safety. Continue by mouth pain medication only as needed. Continue Lovenox 40 mg subcutaneous daily 28 days postop. Postoperative dressings are intact and lightly soiled. Keep right hip dressings clean, dry and intact Provider: Joseph Manning DO Follow-up in: 2 weeks (and then 6 weeks. ) Miguel Vargas MD Jan 23, 2017 09:55
[2017-01-23] MEDS ORDERED: ENOX40DI8 SUBQ (09:59)
[2017-01-23] MEDS: MeTOProlol XL 25 mg ER24 Tablet PO SCH (10:04)
--- NOTE | 2017-01-23 10:58 | NUR ---
Social Work: Readiness for Discharge/Multi-Disciplinary Rounds D: EMR reviewed. Pt is on day 3 of hospitalization. Per rounds, pt is medically stable for discharge. Per RN, pt is ready for transport. SW Yarn Dry Room Worker to coordinate transport time and update RN and SW. T/C to pt's daughters (DPOA) regarding discharge today - pt and family agreeable to discharge today. SW to update family with transfer time. T/C to Jazmine at [place] confirming pt will go to another facility for rehab but is interested in independent living after rehab. T[facility]C [facility] [place] has chosen to go to another facility. T/C to Artie at [facility] to request transport time. Artie confirmed tentative transport time for 1400. SW Yarn Dry Room Worker updated. A: Pt for whom a SNF has been deemed medically necessary. P: Pt to discharge to [facility] at 1400 today. SW Yarn Dry Room Worker updated. Artie form [facility] to confirm transport time and will update SW will any changes. SW to update family with confirmed time. DUNG Song Addendum: 01/23/17 at 1126 by PATRICIA CONTE SS T/C received from Artie confirming 1400 transport time. T/C to pt's daughters confirming 1400 transport time - pt and family agreeable. RN updated. SW Yarn Dry Room Worker updated. SHEN updated MD with transport via [employer] - requested discharge orders. All agreeable to time. DUNG Song
--- NOTE | 2017-01-23 11:37 | PCM.DC.MED ---
Discharge Summary Date of Service Jan 23, 2017 Dates of Hospitalization Date of Hospital Admission Jan 20, 2017 at 01:38 Date of Discharge: Jan 23, 2017 Providers: Admitting Physician: Zuhair Majano MD Primary Care Physician: Faith Garcia PA-C Attending Physician: Kate Godoy MD Diagnosis at Time of Discharge Diagnosis at Time of Discharge Hip fracture Brief History Vaishali Heart is a 81 year old female with Chronic Atrial Fibrillation on anticoagulations, breast Cancer who presents to [facility] emergency department via EMS c/o 1010, intense, right hip pain that radiates from the inner to outer thigh after a ground level fall. According to the patient she was at her home cleaning when she reached down, then lost her balance and fell on her right hip. She denies any loss of consciousness. Pain is exacerbated by movement and rated as 9/10 intensity without any radiation. She had a hard time trying to get up and was having trouble walking and applying pressure to her right leg. She denies hitting her head, chest pain, shortness of breath, nausea, vomiting, lightheadedness, syncope, dizziness, bladder or bowel dysfunction She has had 2 left sided hip fractures in the past with Dr Ronquillo. She was diagnosed with A fib earlier this year and takes both Amiodarone and Metoprolol. She was suppose to take Eliquis but decides on just Aspirin Case discussed with Dr Seay. He spoke to Dr Manning who recommended admission for surgery. Hospital Course Vaishali Heart is a 81 year old female with Chronic Atrial Fibrillation on anticoagulations, breast Cancer who presents to [facility] emergency department via EMS found to have right hip fractures # Acute right Hip fracture. Present on admission Secondary to mechanical fall. No syncope noted. Patient is an acceptable candidate for surgery. She has no increased cardiovascular risk. She has excellent exercise tolerance and I do not recommend any further cardiac testing. Only concern is a Stroke given her CHADS 2 score and will need to be closely monitored - Post op day #3 - pain control with oral oxycodone, bowel regimen - Physical therapy - on Lovenox for DVT prophylaxis #Acute normocytic anemia likely 2/2 operative blood loss, resolved - Hgb has normalized - no signs of active bleeding, no signs of hematoma, or abdominal distension - will continue to trend Hgb, transfuse if <8.0 # Orthostatic hypotension, resolved - likely due to dehydration and blood loss - soft abdomen, no signs of bleeding or hematoma # Chronic Atrial Fibrillation Recent diagnosis this year. Patient refused Eliquis recommended by Dr Vázquez but is on Aspirin - monitor on telemetry - continue Aspirin after lovenox for antiplatelet therapy - continue Amiodarone and Metoprolol for rate control # History of Breast Cancer. in remission - Acetaminophen as needed for mild pain/fever/headache - Bowel regimen as needed - Antiemetic as needed . Exam Vital Signs (Last) Date Time Temp Pulse Resp B/P Pulse Ox O2 Delivery O2 Flow Rate FiO2 01/23/17 08:15 37.2 86 18 123/66 92 Room Air 01/23/17 05:42 2.00 Test 01/19/17 23:50 01/20/17 00:00 01/20/17 03:15 01/22/17 05:54 Prothrombin Time 10.0sec (8.1-12.5) Prothromb Time International Ratio 0.94ratio Magnesium Level 2.1mg/dL (1.6-2.6) Total Bilirubin 0.4mg/dL (0.0-1.2) Aspartate Amino Transf (AST/SGOT) 25U/L (0-50) Alanine Aminotransferase (ALT/SGPT) 28U/L (0-32) Alkaline Phosphatase 78U/L (25-165) Troponin T 0.010ug/L (0.0-0.011) Total Protein 6.9g/dL (6.4-8.4) Albumin 3.8g/dL (3.4-5.0) Lipase 20U/L (13-60) Alcohols < 10mg/dL (0-10) Hold Rivera Top Tube Received (Received) Urine Color Yellow (YELLOW) Urine Appearance Clear (CLEAR,HAZY) Urine pH 6.0 (5.0-8.0) Urine Specific [place] 1.020 (1.003-1.035) Urine Protein Negativemg/dL (NEG,TRACE) Urine Glucose (UA) Negativemg/dL (NEGATIVE) Urine Ketones Tracemg/dL (NEGATIVE) Urine Occult Blood Negative (NEGATIVE) Urine Nitrite Negative (NEGATIVE) Urine Bilirubin Negative (NEGATIVE) Urine Urobilinogen Normalmg/dL (NORMAL) Urine Leukocyte Esterase Negative (NEGATIVE) Urine RBC 0-2/hpf (0-2) Urine WBC 0-5/hpf (0-5) Urine Epithelial Cells Few/hpf (NONE-MOD) Urine Crystals None seen (NONE SEEN) Urine Bacteria Few/hpf (NONE-FEW) Urine Hyaline Casts None/lpf (NONE) Urine Granular Casts None seen (NONE SEEN) Urine Waxy Casts None seen (NONE SEEN) Urine Red Blood Cell Casts None seen (NONE SEEN) Urine White Blood Cell Casts None seen (NONE SEEN) Urine Mucus None seen (None Seen) Urine Trichomonas None seen (NONE SEEN) Urine Yeast None (NONE SEEN) Urinalysis Comment None White Blood Count 9.4th/mm3 (3.8-10.1) Red Blood Count 2.99mil/mm3 (3.90-5.20) Mean Corpuscular Volume 93.3fL (81-100) Mean Corpuscular Hemoglobin 29.1pg (27.0-35.0) Mean Corpuscular Hemoglobin Concent 31.2% (32.0-37.0) Red Cell Distribution Width 15.3% (12.3-15.4) Platelet Count 133bil/L (150-400) Neutrophils (%) (Auto) 73.1% (40-74) Lymphocytes (%) (Auto) 12.8% (14-46) Monocytes (%) (Auto) 13.2% (4-12) Eosinophils (%) (Auto) 0.3% (0-5) Basophils (%) (Auto) 0.1% (0-3) Sodium Level 136mEq/L (134-144) Potassium Level 5.0mEq/L (3.5-5.2) Chloride Level 104mEq/L (97-108) Carbon Dioxide Level 22mmol/L (18-29) Blood Urea Nitrogen 18mg/dL (8-27) Creatinine 0.76mg/dL (0.57-1.00) Estimat Glomerular Filtration Rate 105mL/min (>59) Glucose Level 124mg/dL (60-99) Hemoglobin A1c 5.5% (4.8-5.6) Calcium Level 8.1mg/dL (8.5-10.1) Test 01/22/17 14:30 Hemoglobin 9.0g/dL (12.0-15.6) Hematocrit 28.1% (35.0-46.0) Discharge Medications Discharge Medications Amiodarone (Amiodarone) 200 Mg Tablet 200 MG PO DAILY (Reported) Enoxaparin Sodium (Enoxaparin Sodium) 40 Mg/0.4 Ml Syringe 40 MG SUBQ Q24 Prescribed by: KATE GODOY MD Metoprolol Succinate ER (Metoprolol Succinate ER) 25 Mg Tab.er.24h 12.5 MG PO BID Prescribed by: HOWARD NARVAEZ, Additional med instructions On lovenox subq, continue aspirin after 25 days. Followup Plan Discharge Diet: No restrictions Discharge Activity: Other (as per PT recs) Patient Instructions Weight-bear as tolerated on the right lower extremity using front-wheeled walker. Continue formal physical therapy for mobility, gait and safety. Continue by mouth pain medication only as needed. Continue Lovenox 40 mg subcutaneous daily 28 days postop. Postoperative dressings are intact and lightly soiled. Keep right hip dressings clean, dry and intact Provider: Joseph Manning DO Follow-up in: 2 weeks (and then 6 weeks. ) Kate Godoy MD Jan 23, 2017 11:37
[2017-01-23] MEDS ORDERED: OXYC5TAB72 PO (11:38)
--- NOTE | 2017-01-23 12:45 | NUR ---
[facility] Transfer: Faxed orders to [facility] and placed copy in the chart, [facility] will be transporting patient via wheelchair van at 1400. FIELD CANE SCALER and RN are aware of transport time.
--- NOTE | 2017-01-23 14:25 | NUR ---
Social Work: Discharge D: EMR reviewed. Pt is on day 3 of hospitalization. Per rounds, pt is medically stable for discharge. Per rounds, pt is able to transport via wheelchair van. SW Pharmaceutical Service Representative set up transfer time and transfer pack. Pt to transport to [facility] at 1400 today. A: Pt for whom a SNF has been deemed medically necessary. P: Pt to discharge to [facility] at 1400 today. RN, , and family updated - all agreeable to plan. DUNG Song
--- NOTE | 2017-01-23 14:40 | NUR ---
Discharge Patient discharged to [facility]. Report called to [facility]. IV DC'd and intact. Dressing slight dried drainage. CANDLE EXTRUSION MACHINE OPERATOR gathered all belongings. One person assist w/FWW to W/C. [employer] escorted patient out via W/C.
== END 2017-01-23 14:08 | DRG 481 ==
LOC: SED 22:12 → OSC 01-20 01:38
PROVIDERS: ADMIT Hospitalist; ATTEND Internal Medicine
PROC: 0QH636Z Insertion of Intramedullary Internal Fixation Device into Right Upper Femur, Percutaneous Approach (ICD-10-PCS; principal; 2017-01-20 16:15)
DX: S72.121A Displaced fracture of lesser trochanter of right femur, initial encounter for closed fracture (principal); D62 Acute posthemorrhagic anemia; M17.11 Unilateral primary osteoarthritis, right knee; W01.198A Fall on same level from slipping, tripping and stumbling with subsequent striking against other object, initial encounter; I48.2 Chronic atrial fibrillation; Y92.009 Unspecified place in unspecified non-institutional (private) residence as the place of occurrence of the external cause; Z79.82 Long term (current) use of aspirin